=== PATIENT | female | born 1945 | race Hispanic/Latino ===

== ENCOUNTER 2017-10-08 09:46 | Day surgery (SDC) | payer MEDICARE, BC ==
[2017-10-08] MEDS ORDERED: Lactated Ringer's 1,000 ML IV ONE (09:57)
[2017-10-08] MEDS ORDERED: Propofol 10 mg/ml Inj (20 ML) ONE (11:42)
[2017-10-08] MEDS ORDERED: Lidocaine 2% MPF (5 ml) Inj ONE (11:42)
[2017-10-08 12:11] VITALS: PULSE 75; TEMP 98
[2017-10-08 12:20] VITALS: BP 130/70; RESP 16; O2SAT 99
== END 2017-10-08 12:30 | disposition home or self-care (01) ==
LOC: H.ENDO 09:46
PROVIDERS: ATTEND Internal Medicine Gastroenterology
DX: Z12.11 Encounter for screening for malignant neoplasm of colon (principal); K64.0 First degree hemorrhoids; E11.9 Type 2 diabetes mellitus without complications; E78.5 Hyperlipidemia, unspecified; I10 Essential (primary) hypertension
CPT/HCPCS: 82948; G0121; J2704; J7120

== ENCOUNTER 2018-08-25 16:57 | Inpatient (IN) | payer MEDICARE, BC ==
[2018-08-25] MEDS ORDERED: Sodium Chloride 0.9% 1,000 ML IV STA (17:46)
--- NOTE | 2018-08-25 17:49 | ED PDOC ---
HPI: Abdomen Time Seen by Provider: 08/25/18 17:35 Chief Complaint (Nursing): Abdominal Pain History Per: Patient Onset/Duration Of Symptoms: Days (10) Current Symptoms Are (Timing): Intermittent Episodes Severity: Moderate Location Of Pain/Discomfort: Epigastric Quality Of Discomfort: Unable To Describe Associated Symptoms: Nausea, Vomiting, Diarrhea. denies: Fever, Urinary Symptoms Exacerbating Factors: None Alleviating Factors: None Additional Complaint(s): Intermittent episodes of epigastric pain assoc with nausea and vomiting and diarrhea x 10 days. Denies fever or hematochezia. Denies urinary sxs. Past Medical History Vital Signs: Last Vital Signs Temp 97.7 F 08/25/18 17:15 Pulse 135 H 08/25/18 17:15 Resp 16 08/25/18 17:15 BP 187/118 H 08/25/18 17:15 Pulse Ox 96 08/25/18 17:15 - Medical History PMH: Diabetes, HTN - Surgical History Surgical History: Appendectomy, Endoscopy - Family History Family History: States: Unknown Family Hx - Immunization History Hx Influenza Vaccination: Yes - Home Medications Home Medications: Ambulatory Orders Medication Instructions Recorded Aspirin [Ecotrin] 81 mg PO HS 08/25/18 Cholecalciferol [Vitamin D 1000 IU] 1,000 unit PO DAILY 08/25/18 Ezetimibe/Simvastatin [Vytorin 1 tab PO HS 08/25/18 10-40 mg Tablet] Glipizide [Glipizide ER] 2.5 mg PO DAILY 08/25/18 Metoprolol Succinate [Toprol Xl] 50 mg PO DAILY 08/25/18 Omeprazole 40 mg PO DAILY 08/25/18 Pregabalin [Lyrica] 75 mg PO Q12 08/25/18 hydroCHLOROthiazide [Microzide] 12.5 mg PO DAILY 08/25/18 metFORMIN [glucOPHAGE] 500 mg PO BID 08/25/18 predniSONE [predniSONE Tab] 7 mg PO HS 08/25/18 - Allergies Allergies/Adverse Reactions: Allergies Allergy/AdvReac Type Severity Reaction Status Date / Time Penicillins Allergy SHORTNESS Verified 08/25/18 17:13 OF BREATH Sulfa (Sulfonamide Allergy SHORTNESS Verified 08/25/18 17:13 Antibiotics) OF BREATH Review of Systems ROS Statement: Except As Marked, All Systems Reviewed And Found Negative Constitutional: Negative for: Fever Gastrointestinal: Positive for: Nausea, Vomiting, Abdominal Pain, Diarrhea Physical Exam - Reviewed Nursing Documentation Reviewed: Yes Vital Signs Reviewed: Yes - Physical Exam Appears: Positive for: Non-toxic, No Acute Distress Head Exam: Positive for: ATRAUMATIC, NORMAL INSPECTION, NORMOCEPHALIC Skin: Positive for: Normal Color, Warm, DRY Eye Exam: Positive for: EOMI, Normal appearance, PERRL ENT: Positive for: Other (Mucous membranes dry) Neck: Positive for: Normal, Painless ROM Cardiovascular/Chest: Positive for: Regular Rate, Rhythm Respiratory: Positive for: CNT, Normal Breath Sounds Gastrointestinal/Abdominal: Positive for: Soft, Tenderness (Epigastric) Back: Positive for: Normal Inspection Extremity: Positive for: Normal ROM Neurologic/Psych: Positive for: Alert, Oriented - Laboratory Results Result Diagrams: 08/25/18 18:02 08/25/18 18:02 - ECG O2 Sat by Pulse Oximetry: 96 Medical Decision Making Medical Decision Making: EKG with A fib RVR ? new onset with BP elevated. Will give Cardizem IV Disposition - Clinical Impression Clinical Impression: Abdominal pain, Atrial fibrillation with RVR - Patient ED Disposition Is Patient to be Admitted: Transfer of Care - Disposition Disposition: Transfer of Care Disposition Time: 19:00 Condition: FAIR Forms: mChron (Nepali) Patient Signed Over To: Isma Quintanilla
[2018-08-25 18:13] LABS: BASO % 0.2 % (0.0-2.0); EOS # 0.1 K/uL (0.0-0.7); EOS % 0.7 % (0.0-4.0); HEMOGLOBIN 10.6 g/dL (12.0-16.0); LYMPH # 2.6 K/uL (1.0-4.3); LYMPH % 26.3 % (20.0-40.0); MEAN CELL VOLUME 72.3 fl (81.0-99.0); MEAN CORPUSCULAR HEMOGLOBIN 22.6 pg (27.0-31.0); MEAN CORPUSCULAR HGB CONC 31.3 g/dL (33.0-37.0); MONO # 0.8 K/uL (0.0-0.8); NEUT # 6.5 K/uL (1.8-7.0); NEUT % 64.8 % (50.0-75.0); NRBC % 0.1 % (0.0-0.0); RBC 4.68 Mil/uL (3.80-5.20); RED CELL DISTRIBUTION WIDTH 19.5 % (11.5-14.5); WHITE BLOOD COUNT 10.1 K/uL (4.8-10.8)
[2018-08-25 18:18] LABS: ALB/GLOB RATIO 1.2 (1.0-2.1); ALBUMIN 4.1 g/dL (3.5-5.0)
[2018-08-25] MEDS ORDERED: Iodixanol 320 MG/ML 100 ML BOTTLE IV ONE (18:58)
[2018-08-25] MEDS ORDERED: Sodium Chloride 0.9% 50 ML IV ONE (18:58)
[2018-08-25 19:30] LABS: INR 1.2
--- NOTE | 2018-08-25 20:37 | ED PDOC ---
- Laboratory Results Result Diagrams: 08/25/18 18:02 08/25/18 18:02 - ECG O2 Sat by Pulse Oximetry: 95 (RA) Medical Decision Making Medical Decision Making: Time: 19:00 Patient was signed out to me by Dr. Puri pending CT Abdomen and final disposition. CT Abdomen: FINDINGS: LUNG BASES: The lung bases appear clear. No pleural effusions are seen. There is mild scarring and pleural thickening at the lung bases. LIVER: Unremarkable. GALLBLADDER AND BILE DUCTS: The gallbladder has been surgically removed. Minimal pneumobilia. PANCREAS: Unremarkable. SPLEEN: Unremarkable. ADRENAL GLANDS: Unremarkable. KIDNEYS, URETERS, AND BLADDER: The kidneys appear within normal limits. There is no hydronephrosis or hydroureter. No urinary calculi are seen. STOMACH AND BOWEL: Unremarkable appearance of the stomach and bowel. No evidence of bowel obstruction. No evidence suggesting enteritis or colitis. APPENDIX: No evidence of acute appendicitis on CT examination. PERITONEUM: No free fluid. No free air. There is marked thinning of the anterior abdominal musculature. It LYMPH NODES: No lymphadenopathy is evident. VASCULATURE: No evidence of abdominal aortic aneurysm. BONES: There is advanced hypertrophic and degenerative changes lumbar spine.. IMPRESSION: Mild scarring and pleural thickening at the lung bases. Status post cholecystectomy. Minimal pneumobilia. Marked thinning of the anterior abdominal musculature. No suspicious mass or free fluid collection or lymphadenopathy within the abdomen and pelvis. Scribe Attestation: Documented by Socorro Stewart, acting as a scribe for Isma Quintanilla MD. Provider Scribe Attestation: All medical record entries made by the Scribe were at my direction and per sonally dictated by me. I have reviewed the chart and agree that the record accurately reflects my personal performance of the history, physical exam, medical decision making, and the department course for this patient. I have also personally directed, reviewed, and agree with the discharge instructions and disposition. Disposition Discussed With : Leonides Momin Counseled Patient/Family Regarding: Studies Performed, Diagnosis - Clinical Impression Clinical Impression: Abdominal pain, Atrial fibrillation with RVR - POA Present On Arrival: None - Disposition Disposition: Hospitalized as Observation Patient Disposition Time: 21:00 Condition: FAIR
[2018-08-25] MEDS ORDERED: Enoxaparin 120 mg Syringe SC STA (20:55)
[2018-08-25 21:18] LABS: TROPONIN I 0.025 ng/mL (0.00-0.120)
[2018-08-25] MEDS: Metoprolol Succinate 50 mg XL Tab PO SCH (23:39)
[2018-08-25] MEDS ORDERED: Enoxaparin 80 mg Syringe SC SCH (23:45)
[2018-08-26] MEDS: Metoprolol Succinate 50 mg XL Tab PO SCH ×3 (00:15→08:31)
[2018-08-26 01:00] LABS: TROPONIN I 0.021 ng/mL (0.00-0.120)
[2018-08-26 01:04] LABS: T4 9.93 ug/dl (5.5-11.0)
[2018-08-26 01:18] LABS: T3 1.01 nmol/L (1.49-2.60)
--- NOTE | 2018-08-26 07:57 | CARD ---
APPROVED REPORT Date of service: 08/25/2018 EKG Measurement Heart [id number] <Conclusion> Atrial fibrillation with rapid ventricular response with premature ventricular or aberrantly conducted complexes Incomplete right bundle branch block Abnormal ECG
--- NOTE | 2018-08-26 08:03 | CARD ---
APPROVED REPORT Date of service: 08/26/2018 EKG Measurement Heart [id number] <Conclusion> Atrial fibrillation Incomplete right bundle branch block Cannot rule out Anterior infarct, age undetermined Abnormal ECG
[2018-08-26] MEDS: Insulin Regular 100 units/ml SC SCH ×4 (08:05→22:00)
[2018-08-26] MEDS: Pantoprazole 40 mg EC Tab PO SCH (08:32)
[2018-08-26] MEDS: Cholecalciferol 1,000 INTLU TAB PO SCH (08:33)
[2018-08-26] MEDS: predniSONE 5 mg/5 mL Oral Soln UD PO SCH (08:33)
[2018-08-26] MEDS ORDERED: Enoxaparin 120 mg Syringe SC SCH (09:00)
[2018-08-26] MEDS ORDERED: GlipiZIDE 2.5 mg SR Tab PO SCH (09:00)
--- NOTE | 2018-08-26 09:16 | CT ---
Date of service: 08/25/2018 PROCEDURE: CT Abdomen and Pelvis with contrast HISTORY: Abd pain COMPARISON: None. TECHNIQUE: Contrast dose: 95 mL Visipaque 320 Radiation dose: Total exam DLP = 842.74 mGy-cm. This CT exam was performed using one or more of the following dose reduction techniques: Automated exposure control, adjustment of the mA and/or kV according to patient size, and/or use of iterative reconstruction technique. FINDINGS: LOWER THORAX: Minimal linear scar/atelectasis in left lower lobe and to a lesser extent in the lingula. Trace right pleural effusion LIVER: Normal size, contour and attenuation. There is minimal intrahepatic biliary gas in the left lobe of the liver. This is likely related to prior cholecystectomy. No mass. No biliary ductal dilatation. GALLBLADDER AND BILE DUCTS: Status post cholecystectomy PANCREAS: Unremarkable. No gross lesion or ductal dilatation. SPLEEN: Unremarkable. ADRENALS: Unremarkable. No mass. KIDNEYS AND URETERS: There is a nonspecific rounded mass in the lower pole of the right kidney measuring 18 mm in diameter. This should be further evaluated with ultrasound examination. There is no other renal mass identified. There is no calculus or hydronephrosis. VASCULATURE: Unremarkable. No aortic aneurysm. There is atherosclerotic calcification of the abdominal aorta. BOWEL: Unremarkable. No obstruction. No gross mural thickening. APPENDIX: Normal appendix. PERITONEUM: Unremarkable. No free fluid. No free air. LYMPH NODES: Unremarkable. No enlarged lymph nodes. BLADDER: Suboptimally distended. Mild mural thickening and questionable perivesical stranding raise suspicion of acute cystitis. Please correlate with urinalysis. REPRODUCTIVE: Normal postmenopausal uterus BONES: Incidental hemangiomas of the T11 and L1 vertebral bodies. No evidence of acute fracture. OTHER FINDINGS: None. IMPRESSION: Mild bladder wall thickening. Possibly artifactual. Questionable perivesical fat stranding. Please correlate with urinalysis in consideration of possible acute cystitis. Nonspecific 18 mm mass in the lower pole of the right kidney. Recommend further evaluation with ultrasound examination. Status post cholecystectomy. Mild pneumobilia in the left hepatic lobe. Likely related to prior cholecystectomy. Trace right pleural effusion. No other significant abnormality is identified. The preliminary findings for this examination were reported by [facility] at 8:32 p.m. on 08/25/2018. There is discordance of this report with the preliminary findings. Findings regarding the urinary bladder and possible cystitis were not described in the preliminary report of this examination.
--- NOTE | 2018-08-26 09:20 | RAD ---
Date of service: 08/25/2018 PROCEDURE: CHEST RADIOGRAPH, 1 VIEW HISTORY: copd COMPARISON: None available. FINDINGS: LUNGS: Clear. PLEURA: No pneumothorax or pleural fluid seen. CARDIOVASCULAR: No aortic atherosclerotic calcification present. Normal. OSSEOUS STRUCTURES: No significant abnormalities. VISUALIZED UPPER ABDOMEN: Normal. OTHER FINDINGS: None. IMPRESSION: No active disease.
[2018-08-26] MEDS: Enoxaparin 120 mg Syringe SC SCH ×2 (10:08→21:19)
[2018-08-26 10:40] LABS: HEMOGLOBIN 10.5 g/dL (12.0-16.0); MEAN CELL VOLUME 73.5 fl (81.0-99.0); MEAN CORPUSCULAR HEMOGLOBIN 22.8 pg (27.0-31.0); RBC 4.59 Mil/uL (3.80-5.20); RED CELL DISTRIBUTION WIDTH 19.7 % (11.5-14.5); WHITE BLOOD COUNT 9.1 K/uL (4.8-10.8)
[2018-08-26 10:59] LABS: BLOOD UREA NITROGEN 17 mg/dl (7-17); CALCIUM 8.9 mg/dL (8.4-10.2); GFR NON-AFRICAN AMERICAN 55
[2018-08-26] MEDS ORDERED: Sodium Chloride 0.9% 1,000 ML IV SCH (11:00)
[2018-08-26] MEDS ORDERED: Potassium Chloride 20 mEq/15 ml LIQ UD PO ONE (12:02)
[2018-08-26 12:07] LABS: SQUAMOUS EPITHIAL 1 /hpf (0-5); URINE BILIRUBIN NEGATIVE (NEGATIVE); URINE BLOOD NEGATIVE (NEGATIVE); URINE CLARITY CLEAR (Clear); URINE COLOR YELLOW (YELLOW); URINE GLUCOSE (UA) NEG (NEGATIVE); URINE HYALINE CAST 0-2 /hpf (0-2); URINE LEUKOCYTE ESTERASE NEG Leu/uL (Negative); URINE PROTEIN NEGATIVE (NEGATIVE); URINE UROBILINOGEN 0.2-1.0 mg/dL (0.2-1.0)
--- NOTE | 2018-08-26 12:56 | CP.PCM.CON ---
History of Present Illness - History of Present Illness History of Present Illness: Consultation for evaluation of new onset afib HPI: 73 year old female with hx of HTN , DM 2' to steroids, PMR admitted with c/o 10 days of epigastric discomfort and diarrhea after eating a steak. At baseline denies any chest pains or SOB. In the ED pt noted to be in atrial fibrillation w/RVR , echocardiogram showed normal EF , dilated LV with biatrial enlargement Review of Systems - Review of Systems Systems not reviewed;Unavailable: Acuity of Condition - Constitutional Constitutional: As Per HPI - EENT Eyes: As Per HPI Ears: As Per HPI Nose/Mouth/Throat: As Per HPI - Breasts Breasts: As Per HPI - Cardiovascular Cardiovascular: As Per HPI - Respiratory Respiratory: As Per HPI - Gastrointestinal Gastrointestinal: As Per HPI - Genitourinary Genitourinary: As Per HPI - Reproductive: Female Reproductive:Female: As Per HPI - Menstruation Menstruation: As Per HPI - Musculoskeletal Musculoskeletal: As Per HPI - Integumentary Integumentary: As Per HPI - Neurological Neurological: As Per HPI - Psychiatric Psychiatric: As Per HPI - Endocrine Endocrine: As Per HPI - Hematologic/Lymphatic Hematologic: As Per HPI Past Patient History - Past Medical History & Family History Past Medical History?: Yes - Past Social History Smoking Status: Never Smoked - CARDIAC Hx Cardiac Disorders: Yes Hx Hypertension: Yes - PULMONARY Hx Respiratory Disorders: No - NEUROLOGICAL Hx Neurological Disorder: No - HEENT Hx HEENT Problems: No - RENAL Hx Chronic Kidney Disease: No - ENDOCRINE/METABOLIC Hx Endocrine Disorders: Yes Hx Diabetes Mellitus Type 2: Yes - HEMATOLOGICAL/ONCOLOGICAL Hx Blood Disorders: No Hx AIDS: No Hx Human Immunodeficiency Virus (HIV): No - INTEGUMENTARY Hx Dermatological Problems: No - MUSCULOSKELETAL/RHEUMATOLOGICAL Hx Musculoskeletal Disorders: No Hx Falls: No - GASTROINTESTINAL Hx Gastrointestinal Disorders: No - GENITOURINARY/GYNECOLOGICAL Hx Genitourinary Disorders: No - PSYCHIATRIC Hx Psychophysiologic Disorder: No Hx Substance Use: No - SURGICAL HISTORY Hx Surgeries: Yes Hx Appendectomy: Yes Other/Comment: Carpal tunnel surg, endoscopy - ANESTHESIA Hx Anesthesia: Yes Hx Anesthesia Reactions: No Hx Malignant Hyperthermia: No Meds Allergies/Adverse Reactions: Allergies Allergy/AdvReac Type Severity Reaction Status Date / Time Penicillins Allergy SHORTNESS Verified 08/25/18 17:13 OF BREATH Sulfa (Sulfonamide Allergy SHORTNESS Verified 08/25/18 17:13 Antibiotics) OF BREATH - Medications Medications: Current Medications Aspirin (Ecotrin) 81 mg PO HS [facility] Last Admin: 08/26/18 00:04 Dose: 81 mg Cholecalciferol (Vitamin D) 1,000 intlu PO DAILY [facility] Last Admin: 08/26/18 08:33 Dose: 1,000 intlu Diltiazem HCl (Cardizem) 30 mg PO TID [facility] Enoxaparin Sodium (Lovenox) 110 mg SC Q12 [facility]; Protocol Last Admin: 08/26/18 10:08 Dose: 110 mg Glipizide (Glucotrol Xl) 2.5 mg PO DAILY [facility] Last Admin: 08/26/18 08:29 Dose: 2.5 mg Hydrochlorothiazide (Microzide) 12.5 mg PO DAILY [facility] Last Admin: 08/26/18 08:06 Dose: Not Given Potassium Chloride/Sodium Chloride (Potassium Chl 20 Meq In Ns) 1,000 mls @ 85 mls/hr IV .[id number] [facility] Stop: 08/27/18 10:53 Insulin Human Regular (Humulin R) 0 units SC ACHS [facility]; Protocol Last Admin: 08/26/18 12:52 Dose: Not Given Metformin HCl (Glucophage) 500 mg PO BID [facility] Last Admin: 08/26/18 08:29 Dose: 500 mg Metoprolol Succinate (Toprol Xl) 50 mg PO DAILY [facility] Last Admin: 08/26/18 08:31 Dose: 50 mg Pantoprazole Sodium (Protonix Ec Tab) 40 mg PO DAILY [facility] Last Admin: 08/26/18 08:32 Dose: 40 mg Prednisone (Prednisone Oral Soln) 7 mg PO DAILY [facility] Last Admin: 08/26/18 08:33 Dose: 7 mg Pregabalin (Lyrica) 75 mg PO BID [facility] Last Admin: 08/26/18 10:21 Dose: 75 mg Physical Exam - Constitutional Appears: Well - Head Exam Head Exam: ATRAUMATIC, NORMAL INSPECTION, NORMOCEPHALIC - Eye Exam Eye Exam: EOMI, Normal appearance, PERRL Pupil Exam: NORMAL ACCOMODATION, PERRL - ENT Exam ENT Exam: Mucous Membranes Moist, Normal Exam - Neck Exam Neck exam: Positive for: Normal Inspection - Respiratory Exam Respiratory Exam: Clear to Auscultation Bilateral, NORMAL BREATHING PATTERN - Cardiovascular Exam Cardiovascular Exam: Irregular Rhythm, +S1, +S2, Systolic Murmur - GI/Abdominal Exam GI & Abdominal Exam: Normal Bowel Sounds, Soft. absent: Tenderness - Extremities Exam Extremities exam: Positive for: normal inspection - Back Exam Back exam: NORMAL INSPECTION - Neurological Exam Neurological exam: Alert, CN II-XII Intact, Normal Gait, Oriented x3, Reflexes Normal - Psychiatric Exam Psychiatric exam: Normal Affect, Normal Mood - Skin Skin Exam: Dry, Intact, Normal Color, Warm Results - Vital Signs Recent Vital Signs: Last Vital Signs Temp 98 F 08/26/18 12:17 Pulse 80 08/26/18 12:17 Resp 18 08/26/18 12:17 BP 177/98 H 08/26/18 12:17 Pulse Ox 96 08/26/18 12:17 - Labs Result Diagrams: 08/26/18 10:27 08/26/18 10:27 Labs: Laboratory Results - last 24 hr 08/25/18 08/25/18 08/25/18 18:00 18:02 18:02 WBC 10.1 RBC 4.68 Hgb 10.6 L Hct 33.8 L MCV 72.3 L MCH 22.6 L MCHC 31.3 L RDW 19.5 H Plt Count 327 MPV 9.0 Neut % (Auto) 64.8 Lymph % (Auto) 26.3 Edmunds % (Auto) 8.0 Eos % (Auto) 0.7 Baso % (Auto) 0.2 Neut # (Auto) 6.5 Lymph # (Auto) 2.6 Edmunds # (Auto) 0.8 Eos # (Auto) 0.1 Baso # (Auto) 0.0 PT INR Sodium 141 Potassium 3.6 Chloride 104 Carbon Dioxide 24 Anion Gap 17 BUN 22 H Creatinine 1.2 Est GFR ( Amer) 54 Est GFR (Non-Af Amer) 44 POC Glucose (mg/dL) Random Glucose 90 Calcium 9.0 Total Bilirubin 1.0 AST 20 ALT 25 Alkaline Phosphatase 92 Troponin I 0.0250 Total Protein 7.5 Albumin 4.1 Globulin 3.5 Albumin/Globulin Ratio 1.2 Lipase 102 Thyroxine (T4) Total T3 TSH 3rd Generation 6.77 H Urine Color Urine Clarity Urine pH Ur Specific [place] Urine Protein Urine Glucose (UA) Urine Ketones Urine Blood Urine Nitrate Urine Bilirubin Urine Urobilinogen Ur Leukocyte Esterase Urine RBC (Auto) Urine Microscopic WBC Ur Squamous Epith Cells Hyaline Casts 08/25/18 08/26/18 08/26/18 19:07 00:24 05:20 WBC RBC Hgb Hct MCV MCH MCHC RDW Plt Count MPV Neut % (Auto) Lymph % (Auto) Edmunds % (Auto) Eos % (Auto) Baso % (Auto) Neut # (Auto) Lymph # (Auto) [place] # (Auto) Eos # (Auto) Baso # (Auto) PT 14.0 H INR 1.2 Sodium Potassium Chloride Carbon Dioxide Anion Gap BUN Creatinine Est GFR ( Amer) Est GFR (Non-Af Amer) POC Glucose (mg/dL) 72 Random Glucose Calcium Total Bilirubin AST ALT Alkaline Phosphatase Troponin I 0.0210 Total Protein Albumin Globulin Albumin/Globulin Ratio Lipase Thyroxine (T4) 9.93 Total T3 1.01 L TSH 3rd Generation Urine Color Urine Clarity Urine pH Ur Specific [place] Urine Protein Urine Glucose (UA) Urine Ketones Urine Blood Urine Nitrate Urine Bilirubin Urine Urobilinogen Ur Leukocyte Esterase Urine RBC (Auto) Urine Microscopic WBC Ur Squamous Epith Cells Hyaline Casts 08/26/18 08/26/18 08/26/18 10:27 10:27 11:18 WBC 9.1 RBC 4.59 Hgb 10.5 L Hct 33.7 L MCV 73.5 L MCH 22.8 L MCHC 31.0 L RDW 19.7 H Plt Count 308 MPV Neut % (Auto) Lymph % (Auto) Edmunds % (Auto) Eos % (Auto) Baso % (Auto) Neut # (Auto) Lymph # (Auto) [place] # (Auto) Eos # (Auto) Baso # (Auto) PT INR Sodium 141 Potassium 3.3 L Chloride 102 Carbon Dioxide 26 Anion Gap 16 BUN 17 Creatinine 1.0 Est GFR ( Amer) > 60 Est GFR (Non-Af Amer) 55 POC Glucose (mg/dL) 93 Random Glucose 100 Calcium 8.9 Total Bilirubin AST ALT Alkaline Phosphatase Troponin I Total Protein Albumin Globulin Albumin/Globulin Ratio Lipase Thyroxine (T4) Total T3 TSH 3rd Generation Urine Color Urine Clarity Urine pH Ur Specific [place] Urine Protein Urine Glucose (UA) Urine Ketones Urine Blood Urine Nitrate Urine Bilirubin Urine Urobilinogen Ur Leukocyte Esterase Urine RBC (Auto) Urine Microscopic WBC Ur Squamous Epith Cells Hyaline Casts 08/26/18 11:50 WBC RBC Hgb Hct MCV MCH MCHC RDW Plt Count MPV Neut % (Auto) Lymph % (Auto) Edmunds % (Auto) Eos % (Auto) Baso % (Auto) Neut # (Auto) Lymph # (Auto) [place]ds # (Auto) Eos # (Auto) Baso # (Auto) PT INR Sodium Potassium Chloride Carbon Dioxide Anion Gap BUN Creatinine Est GFR ( Amer) Est GFR (Non-Af Amer) POC Glucose (mg/dL) Random Glucose Calcium Total Bilirubin AST ALT Alkaline Phosphatase Troponin I Total Protein Albumin Globulin Albumin/Globulin Ratio Lipase Thyroxine (T4) Total T3 TSH 3rd Generation Urine Color Yellow Urine Clarity Clear Urine pH 6.0 Ur Specific [place] 1.023 Urine Protein Negative Urine Glucose (UA) Neg Urine Ketones Trace Urine Blood Negative Urine Nitrate Negative Urine Bilirubin Negative Urine Urobilinogen 0.2-1.0 Ur Leukocyte Esterase Neg Urine RBC (Auto) 2 Urine Microscopic WBC 1 Ur Squamous Epith Cells 1 Hyaline Casts 0-2 Assessment & Plan (1) Atrial fibrillation with RVR Status: Acute (2) Abdominal pain Status: Acute (3) Cardiomyopathy Status: Acute (4) Mitral valve disease Status: Acute (5) Morbid obesity Status: Acute
[2018-08-26] MEDS: Potassium Chl 20 mEq in NS 1,000 ML IV SCH (13:10)
--- NOTE | 2018-08-26 13:52 | CP.PCM.HP ---
History of Present Illness - History of Present Illness History of Present Illness: 73 y/o lady presented with diarrhea, dysphagia, general weakness, palpitations, abdominal pain x 10 days wgt loss 14 lbs in 10 days. In ER the patient presented with new onset of a.fibrillation. An echo reveled a dilated cardiomiopathy with mitral valve regurgitation. All these condition are new and appeared acute in origin. Blood culture pending. The association of diarrhea with the new findings in the cardiac condition could be a sign of and in infectious process. The cause of this can be related to a low virulent species of bacteria. Will start antibx iv until the etiopathology of this condition is not clear. The patient will need further studies for her cardiac condition (cardiac catheterization, JS-if not stricture- and possible pacemaker). Will follow ID, Cardiology and GI consults. Present on Admission - Present on Admission Any Indicators Present on Admission: No Review of Systems - Constitutional Constitutional: Anorexia, Malaise, Weight Loss, Weakness - EENT Eyes: As Per HPI Nose/Mouth/Throat: As Per HPI - Cardiovascular Cardiovascular: Dyspnea on Exertion, Palpitations - Respiratory Respiratory: Dyspnea on Exertion - Gastrointestinal Gastrointestinal: Abdominal Pain, Diarrhea, Dyspepsia, Dysphagia, Nausea - Musculoskeletal Musculoskeletal: Muscle Weakness - Integumentary Integumentary: As Per HPI - Neurological Neurological: As Per HPI - Psychiatric Psychiatric: As Per HPI - Endocrine Endocrine: As Per HPI Past Patient History - Past Medical History & Family History Past Medical History?: Yes - Past Social History Smoking Status: Never Smoked - CARDIAC Hx Cardiac Disorders: Yes Hx Hypertension: Yes - PULMONARY Hx Respiratory Disorders: No - NEUROLOGICAL Hx Neurological Disorder: No - HEENT Hx HEENT Problems: No - RENAL Hx Chronic Kidney Disease: No - ENDOCRINE/METABOLIC Hx Endocrine Disorders: Yes Hx Diabetes Mellitus Type 2: Yes - HEMATOLOGICAL/ONCOLOGICAL Hx Blood Disorders: No Hx AIDS: No Hx Human Immunodeficiency Virus (HIV): No - INTEGUMENTARY Hx Dermatological Problems: No - MUSCULOSKELETAL/RHEUMATOLOGICAL Hx Musculoskeletal Disorders: No Hx Falls: No - GASTROINTESTINAL Hx Gastrointestinal Disorders: No - GENITOURINARY/GYNECOLOGICAL Hx Genitourinary Disorders: No - PSYCHIATRIC Hx Psychophysiologic Disorder: No Hx Substance Use: No - SURGICAL HISTORY Hx Surgeries: Yes Hx Appendectomy: Yes Other/Comment: Carpal tunnel surg, endoscopy - ANESTHESIA Hx Anesthesia: Yes Hx Anesthesia Reactions: No Hx Malignant Hyperthermia: No Meds Allergies/Adverse Reactions: Allergies Allergy/AdvReac Type Severity Reaction Status Date / Time Penicillins Allergy SHORTNESS Verified 08/25/18 17:13 OF BREATH Sulfa (Sulfonamide Allergy SHORTNESS Verified 08/25/18 17:13 Antibiotics) OF BREATH Physical Exam - Constitutional Appears: Chronically Ill Additional comments: morbid obese - Head Exam Head Exam: ATRAUMATIC, NORMAL INSPECTION, NORMOCEPHALIC - Eye Exam Eye Exam: Normal appearance - ENT Exam ENT Exam: Mucous Membranes Dry - Neck Exam Neck exam: Positive for: Full Rom - Respiratory Exam Respiratory Exam: Decreased Breath Sounds - Cardiovascular Exam Cardiovascular Exam: Tachycardia, Irregular Rhythm, REGULAR RHYTHM, Systolic Murmur - GI/Abdominal Exam GI & Abdominal Exam: Normal Bowel Sounds - Rectal Exam Rectal Exam: Deferred - Neurological Exam Neurological exam: Alert, CN II-XII Intact, Oriented x3 - Psychiatric Exam Psychiatric exam: Normal Affect - Skin Skin Exam: Normal Color Results - Vital Signs Recent Vital Signs: Last Vital Signs Temp 98 F 08/26/18 12:17 Pulse 80 08/26/18 12:17 Resp 18 08/26/18 12:17 BP 177/98 H 08/26/18 12:17 Pulse Ox 96 08/26/18 12:17 - Labs Result Diagrams: 08/26/18 10:27 08/26/18 10:27 Labs: Laboratory Results - last 24 hr 08/25/18 08/25/18 08/25/18 18:00 18:02 18:02 WBC 10.1 RBC 4.68 Hgb 10.6 L Hct 33.8 L MCV 72.3 L MCH 22.6 L MCHC 31.3 L RDW 19.5 H Plt Count 327 MPV 9.0 Neut % (Auto) 64.8 Lymph % (Auto) 26.3 [place] % (Auto) 8.0 Eos % (Auto) 0.7 Baso % (Auto) 0.2 Neut # (Auto) 6.5 Lymph # (Auto) 2.6 [place] # (Auto) 0.8 Eos # (Auto) 0.1 Baso # (Auto) 0.0 PT INR Sodium 141 Potassium 3.6 Chloride 104 Carbon Dioxide 24 Anion Gap 17 BUN 22 H Creatinine 1.2 Est GFR ( Amer) 54 Est GFR (Non-Af Amer) 44 POC Glucose (mg/dL) Random Glucose 90 Calcium 9.0 Total Bilirubin 1.0 AST 20 ALT 25 Alkaline Phosphatase 92 Troponin I 0.0250 Total Protein 7.5 Albumin 4.1 Globulin 3.5 Albumin/Globulin Ratio 1.2 Lipase 102 Thyroxine (T4) Total T3 TSH 3rd Generation 6.77 H Urine Color Urine Clarity Urine pH Ur Specific [place] Urine Protein Urine Glucose (UA) Urine Ketones Urine Blood Urine Nitrate Urine Bilirubin Urine Urobilinogen Ur Leukocyte Esterase Urine RBC (Auto) Urine Microscopic WBC Ur Squamous Epith Cells Hyaline Casts C. difficile Ag & Toxin 08/25/18 08/26/18 08/26/18 19:07 00:24 05:20 WBC RBC Hgb Hct MCV MCH MCHC RDW Plt Count MPV Neut % (Auto) Lymph % (Auto) [place] % (Auto) Eos % (Auto) Baso % (Auto) Neut # (Auto) Lymph # (Auto) [place] # (Auto) Eos # (Auto) Baso # (Auto) PT 14.0 H INR 1.2 Sodium Potassium Chloride Carbon Dioxide Anion Gap BUN Creatinine Est GFR ( Amer) Est GFR (Non-Af Amer) POC Glucose (mg/dL) 72 Random Glucose Calcium Total Bilirubin AST ALT Alkaline Phosphatase Troponin I 0.0210 Total Protein Albumin Globulin Albumin/Globulin Ratio Lipase Thyroxine (T4) 9.93 Total T3 1.01 L TSH 3rd Generation Urine Color Urine Clarity Urine pH Ur Specific [place] Urine Protein Urine Glucose (UA) Urine Ketones Urine Blood Urine Nitrate Urine Bilirubin Urine Urobilinogen Ur Leukocyte Esterase Urine RBC (Auto) Urine Microscopic WBC Ur Squamous Epith Cells Hyaline Casts C. difficile Ag & Toxin 08/26/18 08/26/18 08/26/18 10:27 10:27 11:18 WBC 9.1 RBC 4.59 Hgb 10.5 L Hct 33.7 L MCV 73.5 L MCH 22.8 L MCHC 31.0 L RDW 19.7 H Plt Count 308 MPV Neut % (Auto) Lymph % (Auto) [place] % (Auto) Eos % (Auto) Baso % (Auto) Neut # (Auto) Lymph # (Auto) [place] # (Auto) Eos # (Auto) Baso # (Auto) PT INR Sodium 141 Potassium 3.3 L Chloride 102 Carbon Dioxide 26 Anion Gap 16 BUN 17 Creatinine 1.0 Est GFR ( Amer) > 60 Est GFR (Non-Af Amer) 55 POC Glucose (mg/dL) 93 Random Glucose 100 Calcium 8.9 Total Bilirubin AST ALT Alkaline Phosphatase Troponin I Total Protein Albumin Globulin Albumin/Globulin Ratio Lipase Thyroxine (T4) Total T3 TSH 3rd Generation Urine Color Urine Clarity Urine pH Ur Specific [place] Urine Protein Urine Glucose (UA) Urine Ketones Urine Blood Urine Nitrate Urine Bilirubin Urine Urobilinogen Ur Leukocyte Esterase Urine RBC (Auto) Urine Microscopic WBC Ur Squamous Epith Cells Hyaline Casts C. difficile Ag & Toxin 08/26/18 08/26/18 11:50 11:50 WBC RBC Hgb Hct MCV MCH MCHC RDW Plt Count MPV Neut % (Auto) Lymph % (Auto) [place] % (Auto) Eos % (Auto) Baso % (Auto) Neut # (Auto) Lymph # (Auto) [place] # (Auto) Eos # (Auto) Baso # (Auto) PT INR Sodium Potassium Chloride Carbon Dioxide Anion Gap BUN Creatinine Est GFR ( Amer) Est GFR (Non-Af Amer) POC Glucose (mg/dL) Random Glucose Calcium Total Bilirubin AST ALT Alkaline Phosphatase Troponin I Total Protein Albumin Globulin Albumin/Globulin Ratio Lipase Thyroxine (T4) Total T3 TSH 3rd Generation Urine Color Yellow Urine Clarity Clear Urine pH 6.0 Ur Specific [place] 1.023 Urine Protein Negative Urine Glucose (UA) Neg Urine Ketones Trace Urine Blood Negative Urine Nitrate Negative Urine Bilirubin Negative Urine Urobilinogen 0.2-1.0 Ur Leukocyte Esterase Neg Urine RBC (Auto) 2 Urine Microscopic WBC 1 Ur Squamous Epith Cells 1 Hyaline Casts 0-2 C. difficile Ag & Toxin Negative Assessment & Plan (1) Dysphagia Status: Acute (2) Diabetes 1.5, managed as type 2 Status: Acute (3) Cardiomyopathy Status: Acute (4) Endocarditis Status: Suspected (5) Mitral valve disease Status: Acute (6) Abdominal pain Status: Acute (7) Atrial fibrillation with RVR Status: Acute (8) Morbid obesity Status: Acute (9) Esophageal stricture Status: Suspected - Assessment and Plan (Free Text) Plan: As per orders.
--- NOTE | 2018-08-26 17:19 | US ---
Date of service: 08/26/2018 PROCEDURE: Ultrasound of the Kidneys HISTORY: right kidney mass COMPARISON: None available. TECHNIQUE: Sonogram of the kidneys. FINDINGS: RIGHT KIDNEY: Measures: 4.5 x 4.7 x 9.0 cm. Normal in size, contour and echogenicity. Indeterminate mass/complex cyst 1.5 x 1.8 x 2.4 cm corresponds to findings on LEFT KIDNEY: Measures: 4.5 x 4.8 x 9.0 cm. Normal in size, contour and echogenicity. No stone, solid mass lesion or hydronephrosis visualized. OTHER FINDINGS: None. IMPRESSION: Complex cyst/mass right kidney corresponding findings on recent ultrasound. No additional information can be gleaned from this study. Limitations of the current examination: The location of the finding in the right kidney and patient body habitus.
--- NOTE | 2018-08-26 19:22 | CARD ---
APPROVED REPORT Date of service: 08/26/2018 EXAM: Two-dimensional and M-mode echocardiogram with Doppler and color Doppler. Other Information Quality : GoodRhythm : Atrial Fibrillation INDICATION Atrial Fibrillation 2D DIMENSIONS IVSd1.24 (0.7-1.1cm)LVDd4.28 (3.9-5.9cm) LVOT Diameter1.82 (1.8-2.4cm)PWd1.13 (0.7-1.1cm) IVSs1.64 (0.8-1.2cm)LVDs3.15 (2.5-4.0cm) FS (%) 26.5 %PWs1.44 (0.8-1.2cm) M-Mode DIMENSIONS Left Atrium (MM)4.53 (2.5-4.0cm)IVSd1.15 (0.7-1.1cm) Aortic Root2.97 (2.2-3.7cm)LVDd4.56 (4.0-5.6cm) Aortic Cusp Exc.1.94 (1.5-2.0cm)PWd1.29 (0.7-1.1cm) IVSs1.47 cmFS (%) 27 % LVDs3.32 (2.0-3.8cm)PWs1.65 cm Aortic Valve AoV Peak Mzntnpik647.9cm/sAoV VTI20.9cmAO Peak GR.6mmHg LVOT Peak Zusmgayn69.8cm/sLVOT VTI13.33cmAO Mean GR.3mmHg CHANTEL (VMAX)0.40hd7JSQ (VTI)0.82cm2 Mitral Valve E/A ratio0.0 TDI E/Lateral E'0.0E/Medial E'0.0 Tricuspid Valve TR Peak Ziwaoasn251cp/sRAP [id number] Peak Gr.30mmHg [id number] LEFT VENTRICLE The left ventricle is normal size. There is normal left ventricular wall thickness. The left ventricular systolic function is normal. The estimated ejection fraction is 50-55% No regional wall motion abnormalities noted.. The left ventricular diastolic function cannot be assessed due to underlying atrial fibrillation. No left ventricle thrombus noted on this study. There is no ventricular septal defect visualized. There is no left ventricular aneurysm. There is no mass noted in the left ventricle. RIGHT VENTRICLE The right ventricle is normal size. There is normal right ventricular wall thickness. The right ventricular systolic function is normal. ATRIA The left atrium is moderately dilated. The right atrium size is normal. The interatrial septum is intact with no evidence for an atrial septal defect. AORTIC VALVE The aortic valve is normal in structure. No aortic regurgitation is present. There is no aortic valvular stenosis. There is no aortic valvular vegetation. MITRAL VALVE The mitral valve is normal in structure. There is no evidence of mitral valve prolapse. There is no mitral valve stenosis. There is mild mitral valve regurgitation noted. TRICUSPID VALVE The tricuspid valve is normal in structure. There is mild tricuspid valve regurgitation noted. RVSP is calculated at 40 mm Hg. There is no tricuspid valve prolapse or vegetation. There is no tricuspid valve stenosis. PULMONIC VALVE The pulmonary valve is normal in structure. There is no pulmonic valvular regurgitation. There is no pulmonic valvular stenosis. GREAT VESSELS The aortic root is normal in size. The ascending aorta is normal in size. The pulmonary artery is normal. The IVC is dilated in size and collapses <50% with inspiration. PERICARDIAL EFFUSION There is no pericardial effusion. There is no pleural effusion. <Conclusion> The estimated ejection fraction is 50-55% The left ventricular diastolic function cannot be assessed due to underlying atrial fibrillation. The left atrium is moderately dilated. There is mild mitral valve regurgitation noted. There is mild tricuspid valve regurgitation noted. RVSP is calculated at 40 mm Hg. The IVC is dilated in size and collapses <50% with inspiration.
[2018-08-26] MEDS ORDERED: PREDNISONE 7 MG PO SCH (22:00)
[2018-08-26] MEDS ORDERED: Glucagon Recombinant 1 mg Inj IM PRN (22:54)
[2018-08-26] MEDS ORDERED: Dextrose 50% SYRINGE Inj (50 ml) IV PRN (22:54)
[2018-08-27] MEDS: Potassium Chl 20 mEq in NS 1,000 ML IV SCH (04:24)
[2018-08-27 06:18] LABS: BLOOD UREA NITROGEN 13 mg/dl (7-17); CALCIUM 8.4 mg/dL (8.4-10.2); GFR NON-AFRICAN AMERICAN 55
[2018-08-27] MEDS: Insulin Regular 100 units/ml SC SCH ×4 (08:25→22:00)
[2018-08-27] MEDS: Cholecalciferol 1,000 INTLU TAB PO SCH ×2 (08:26→14:32)
[2018-08-27] MEDS: Pantoprazole 40 mg EC Tab PO SCH ×2 (08:26→14:32)
[2018-08-27] MEDS: Metoprolol Succinate 50 mg XL Tab PO SCH (08:30)
[2018-08-27] MEDS: predniSONE 5 mg/5 mL Oral Soln UD PO SCH ×2 (08:31→14:30)
[2018-08-27] MEDS ORDERED: Barium Sulfate for Susp 98% w/w 340g Bottle ONE (08:36)
[2018-08-27] MEDS ORDERED: Barium Sulfate Susp 0.1% w/v, 0.1% w/w 450 mL Bottle PO ONE (08:37)
--- NOTE | 2018-08-27 11:27 | CP.PCM.PN ---
Subjective - Date & Time of Evaluation Date of Evaluation: 08/27/18 Time of Evaluation: 11:27 - Subjective Subjective: Patient improving Cardiac w/u and culture pending. Objective - Vital Signs/Intake and Output Vital Signs (last 24 hours): Temp Pulse Resp BP Pulse Ox 98.3 F 79 18 178/95 H 96 08/27/18 08:01 08/27/18 08:30 08/27/18 08:27 08/27/18 08:30 08/27/18 08:27 Intake and Output: 08/26/18 08/27/18 23:59 11:59 Intake Total 1550 Balance 1550 - Medications Medications: Current Medications Apixaban (Eliquis) 5 mg PO BID COUNT INCLUDES THE [facility]; Protocol Last Admin: 08/27/18 11:16 Dose: Not Given Aspirin (Ecotrin) 81 mg PO HS COUNT INCLUDES THE [facility] Last Admin: 08/26/18 21:19 Dose: 81 mg Cholecalciferol (Vitamin D) 1,000 intlu PO DAILY COUNT INCLUDES THE [facility] Last Admin: 08/27/18 08:26 Dose: Not Given Dextrose (Dextrose 50% Inj) 0 ml IV STAT PRN; Protocol PRN Reason: Hypoglycemia Protocol Dextrose (Glutose 15) 0 gm PO ONCE PRN; Protocol PRN Reason: Hypoglycemia Protocol Diltiazem HCl (Cardizem) 30 mg PO TID COUNT INCLUDES THE [facility] Last Admin: 08/27/18 08:27 Dose: 30 mg Glucagon (Glucagen Diagnostic Kit) 0 mg IM STAT PRN; Protocol PRN Reason: Hypoglycemia Protocol Hydrochlorothiazide (Microzide) 12.5 mg PO DAILY COUNT INCLUDES THE [facility] Last Admin: 08/27/18 08:27 Dose: 12.5 mg Vancomycin HCl 1 gm/ Sodium (Chloride) 250 mls @ 166.667 mls/hr IVPB DAILY COUNT INCLUDES THE [facility]; Protocol Last Admin: 08/27/18 08:24 Dose: 166.667 mls/hr Insulin Human Regular (Humulin R) 0 units SC ACHS COUNT INCLUDES THE [facility]; Protocol Last Admin: 08/27/18 08:25 Dose: Not Given Metoprolol Succinate (Toprol Xl) 50 mg PO DAILY COUNT INCLUDES THE [facility] Last Admin: 08/27/18 08:30 Dose: 50 mg Pantoprazole Sodium (Protonix Ec Tab) 40 mg PO DAILY COUNT INCLUDES THE [facility] Last Admin: 08/27/18 08:26 Dose: Not Given Prednisone (Prednisone Oral Soln) 7 mg PO DAILY COUNT INCLUDES THE [facility] Last Admin: 12/07/18 08:31 Dose: Not Given Pregabalin (Lyrica) 75 mg PO BID COUNT INCLUDES THE [facility] Last Admin: 08/27/18 08:26 Dose: Not Given - Labs Labs: 08/26/18 10:27 08/27/18 04:25 PT 14.0 Seconds (9.8-13.1) H 08/25/18 19:07 INR 1.2 08/25/18 19:07 - Constitutional Appears: Chronically Ill - Head Exam Head Exam: ATRAUMATIC, NORMAL INSPECTION, NORMOCEPHALIC - Eye Exam Eye Exam: Normal appearance - ENT Exam ENT Exam: Mucous Membranes Moist - Neck Exam Neck Exam: Full ROM - Respiratory Exam Respiratory Exam: Clear to Ausculation Bilateral - Cardiovascular Exam Cardiovascular Exam: Irregular Rhythm, REGULAR RHYTHM, +S1, +S2 - GI/Abdominal Exam GI & Abdominal Exam: Normal Bowel Sounds - Neurological Exam Neurological Exam: Alert, Awake, Oriented x3 - Psychiatric Exam Psychiatric exam: Normal Affect - Skin Skin Exam: Normal Color Assessment and Plan (1) Dysphagia Status: Acute (2) Diabetes 1.5, managed as type 2 Status: Acute (3) Cardiomyopathy Status: Acute (4) Endocarditis Status: Suspected (5) Mitral valve disease Status: Acute (6) Abdominal pain Status: Acute (7) Atrial fibrillation with RVR Status: Acute (8) Morbid obesity Status: Acute (9) Esophageal stricture Status: Suspected
--- NOTE | 2018-08-27 13:30 | PQF ---
PROVIDER RESPONSE TEXT: BMI: 46.9 5 ft Morbid obesity REVIEWER QUERY TEXT: Clarification of Clinical Diagnostic Findings In agreement with the BMI: 46.9 as listed in the EMR? If in agreement please add the BMI to your next progress note OR: Disagree OR: Other explanation of clinical finding EMR: BMI: 46.9 5 ft The patient's Clinical Indicators include: -- Query created by: Rhiannon Patel on 08/27/2018 12:04 PM Electronically signed by: Leonides Momin MD 08/27/2018 1:27 PM
--- NOTE | 2018-08-27 14:00 | CP.PCM.CON ---
History of Present Illness - History of Present Illness History of Present Illness: 73 y/o lady presented with diarrhea, dysphagia, general weakness, palpitations, abdominal pain x 10 days wgt loss 14 lbs in 10 days. In ER the patient presented with new onset of a.fibrillation. An echo reveled a dilated cardiomiopathy with mitral valve regurgitation. All these condition are new and appeared acute in origin. Blood culture pending. empiric IV antibiotics in progress Review of Systems - Review of Systems All systems: reviewed and no additional remarkable complaints except - Constitutional Constitutional: As Per HPI - EENT Eyes: absent: As Per HPI, Blind Spots, Blurred Vision, Change in Vision, Decreased Night Vision, Diplopia, Discharge, Dry Eye, Exophthalmos, Floaters, Irritation, Itchy Eyes, Loss of Peripheral Vision, Pain, Photophobia, Requires Corrective Lenses, Sees Flashes, Spots in Vision, Tunnel Vision, Other Visual Disturbances, Loss of Vision, Other Ears: absent: As Per HPI, Decreased Hearing, Ear Discharge, Ear Pain, Tinnitus, Abnormal Hearing, Disequilibrium, Dizziness, Other Nose/Mouth/Throat: absent: As Per HPI, Epistaxis, Nasal Congestion, Nasal Discharge, Nasal Obstruction, Nasal Trauma, Nose Pain, Post Nasal Drip, Sinus Pain, Sinus Pressure, Bleeding Gums, Change in Voice, Dental Pain, Dry Mouth, Dysphagia, Halitosis, Hoarsness, Lip Swelling, Mouth Lesions, Mouth Pain, Odynophagia, Sore Throat, Throat Swelling, Tongue Swelling, Facial Pain, Neck Pain, Neck Mass, Other - Breasts Breasts: absent: As Per HPI, Change in Shape, Mass, Pain, Nipple Discharge, Nipple Inversion, Skin Changes, Swelling, Other - Cardiovascular Cardiovascular: absent: As Per HPI, Acrocyanosis, Chest Pain, Chest Pain at Rest, Chest Pain with Activity, Claudication, Diaphoresis, Dyspnea, Dyspnea on Exertion, Edema, Irregular Heart Rhythm, Pain Radiating to Arm/Neck/Jaw, Leg Edema, Leg Ulcers, Lightheadedness, Orthopnea, Palpitations, Paroxysmal Nocturnal Dyspnea, Pedal Edema, Radiating Pain, Rapid Heart Rate, Slow Heart Rat e, Syncope, Other - Respiratory Respiratory: absent: As Per HPI, Cough, Dyspnea, Hemoptysis, Dyspnea on Exertion, Wheezing, Snoring, Stridor, Pain on Inspiration, Chest Congestion, Excessive Mucous Production, Change in Mucous Color, Pain with Coughing, Other - Gastrointestinal Gastrointestinal: absent: As Per HPI, Abdominal Pain, Belching, Bloating, Change in Bowel Habits, Change in Stool Character, Coffee Ground Emesis, Constipation, Cramping, Diarrhea, Dyspepsia, Dysphagia, Early Satiety, Excessive Flatus, Fecal Incontinence, Heartburn, Hematemesis, Hematochezia, Loose Stools, Melena, Nausea, Odynophagia, Temesmus, Vomiting, Other - Genitourinary Genitourinary: absent: As Per HPI, Change in Urinary Stream, Difficulty Urinating, Dysuria, Flank Pain, Hematuria, Pyuria, Nocturia, Urinary Incontinence, Urinary Frequency, Urinary Hesitance, Urinary Urgency, Voiding Freq/Small Amts, Freq UTI, Hx Renal/Bladder Calculi, Hx /Renal Surgery, Bladder Distension, Other - Reproductive: Female Reproductive:Female: absent: As Per HPI, Amenorrhea, Amenorrhea/ Control, Currently Menstual, Cycle <21 Days, Cycle >35 Days, Cycle Variable, Menses 1-7 Days, Menses >/= 8 Days, Menses Variable, Cycle > 4 Weeks Between, No Menses for 6 Months, Heavy Menses, Light Menses, Normal Menses, Spotting Between Cycles, S/P Hysterectomy, Menopausal, Post Menopausal, Premenarche, Abnormal Vaginal Bleeding, Dysmenorrhea, Dyspareunia, Genital Lesions, Genital Pruritis, Pelvic Pain, Prolapse Symptoms, Sexual Dysfunction, Vaginal Discharge, Vaginal Dryness, Vaginal Odor, Vaginal Pruritis, Other - Menstruation Menstruation: absent: As Per HPI, Amenorrhea, Amenorrhea/ Control, Currently Menstual, Cycle <21 Days, Cycle >35 Days, Cycle Variable, Menses 1-7 Days, Menses >/= 8 Days, Menses Variable, Cycle > 4 Weeks Between, No Menses for 6 Months, Heavy Menses, Light Menses, Normal Menses, Spotting Between Cycles, S/P Hysterectomy, Menopausal, Post Menopausal, Premenarche, Abnormal Vaginal Bleeding, Dysmenorrhea, Other - Musculoskeletal Musculoskeletal: absent: As Per HPI, Abnormal Gait, Arthralgias, Atrophy, Back Pain, Deformity, Joint Swelling, Limited Range of Motion, Loss of Height, Muscle Cramps, Muscle Weakness, Myalgias, Neck Pain, Numbness, Radiating Pain into Limb, Stiffness, Tingling, Other - Integumentary Integumentary: absent: As Per HPI, Acne, Alopecia, Bleeding Lesions, Change in Hair, Change in Nails, Change in Pigmentation, Changing Lesions, Dry Skin, Erythema, Furuncle, Hirsutism, Lesions, New Lesions, Non-Healing Lesions, Photosensitivity, Pruritus, Rash, Skin Pain, Skin Ulcer, Sores, Striae, S welling, Unusual Bruising, Wounds, Jaundice, Other - Neurological Neurological: absent: As Per HPI, Abnormal Gait, Abnormal Hearing, Abnormal Movements, Abnormal Speech, Behavioral Changes, Burning Sensations, Confusion, Convulsions, Disequilibrium, Dizziness, Numbness, Focal Weakness, Frequent Falls, Headaches, Lack of Coordination, Loss of Vision, Memory Loss, Paresthesias, Radicular Pain, Restless Legs, Sensory Deficit, Syncope, Tingling, Tremor, Vertigo, Weakness, Other Visual Disturbances, Other - Psychiatric Psychiatric: absent: As Per HPI, Abnormal Sleep Pattern, Anhedonia, Anxiety, Auditory Hallucinations, Behavioral Changes, Change in Appetite, Change in Libido, Confusion, Depression, Difficulty Concentrating, Hallucinations, Homicidal Ideation, Hopelessness, Irritability, Memory Loss, Mood Swings, Panic Attacks, Paranoia, Suicidal Ideation, Visual Hallucinations, Tactile Hallucinations, Other - Endocrine Endocrine: absent: As Per HPI, Change in Body Appearance, Change in Libido, Cold Intolorance, Deepening of Voice, Excessive Sweating, Fatigue, Flushing, Heat Intolorance, Increase in Ring/Shoe/Hat Size, Palpitations, Polydipsia, Polyphagia, Polyuria, Other - Hematologic/Lymphatic Hematologic: absent: As Per HPI, Easy Bleeding, Easy Bruising, Lymphadenopathy, Other Past Patient History - Past Medical History & Family History Past Medical History?: Yes - Past Social History Smoking Status: Never Smoked - CARDIAC Hx Cardiac Disorders: Yes Hx Hypertension: Yes - PULMONARY Hx Respiratory Disorders: No - NEUROLOGICAL Hx Neurological Disorder: No - HEENT Hx HEENT Problems: No - RENAL Hx Chronic Kidney Disease: No - ENDOCRINE/METABOLIC Hx Endocrine Disorders: Yes Hx Diabetes Mellitus Type 2: Yes - HEMATOLOGICAL/ONCOLOGICAL Hx Blood Disorders: No Hx AIDS: No Hx Human Immunodeficiency Virus (HIV): No - INTEGUMENTARY Hx Dermatological Problems: No - MUSCULOSKELETAL/RHEUMATOLOGICAL Hx Musculoskeletal Disorders: No Hx Falls: No - GASTROINTESTINAL Hx Gastrointestinal Disorders: No - GENITOURINARY/GYNECOLOGICAL Hx Genitourinary Disorders: No - PSYCHIATRIC Hx Psychophysiologic Disorder: No Hx Substance Use: No - SURGICAL HISTORY Hx Surgeries: Yes Hx Appendectomy: Yes Other/Comment: Carpal tunnel surg, endoscopy - ANESTHESIA Hx Anesthesia: Yes Hx Anesthesia Reactions: No Hx Malignant Hyperthermia: No Meds Allergies/Adverse Reactions: Allergies Allergy/AdvReac Type Severity Reaction Status Date / Time Penicillins Allergy SHORTNESS Verified 08/25/18 17:13 OF BREATH Sulfa (Sulfonamide Allergy SHORTNESS Verified 08/25/18 17:13 Antibiotics) OF BREATH - Medications Medications: Current Medications Apixaban (Eliquis) 5 mg PO BID [facility]; Protocol Last Admin: 08/27/18 11:16 Dose: Not Given Aspirin (Ecotrin) 81 mg PO HS [facility] Last Admin: 08/26/18 21:19 Dose: 81 mg Cholecalciferol (Vitamin D) 1,000 intlu PO DAILY [facility] Last Admin: 08/27/18 08:26 Dose: Not Given Dextrose (Dextrose 50% Inj) 0 ml IV STAT PRN; Protocol PRN Reason: Hypoglycemia Protocol Dextrose (Glutose 15) 0 gm PO ONCE PRN; Protocol PRN Reason: Hypoglycemia Protocol Diltiazem HCl (Cardizem) 30 mg PO TID [facility] Last Admin: 08/27/18 08:27 Dose: 30 mg Glucagon (Glucagen Diagnostic Kit) 0 mg IM STAT PRN; Protocol PRN Reason: Hypoglycemia Protocol Hydrochlorothiazide (Microzide) 12.5 mg PO DAILY [facility] Last Admin: 08/27/18 08:27 Dose: 12.5 mg Vancomycin HCl 1 gm/ Sodium (Chloride) 250 mls @ 166.667 mls/hr IVPB DAILY [facility]; Protocol Last Admin: 08/27/18 08:24 Dose: 166.667 mls/hr Insulin Human Regular (Humulin R) 0 units SC ACHS [facility]; Protocol Last Admin: 08/27/18 11:36 Dose: Not Given Metoprolol Succinate (Toprol Xl) 50 mg PO DAILY [facility] Last Admin: 08/27/18 08:30 Dose: 50 mg Pantoprazole Sodium (Protonix Ec Tab) 40 mg PO DAILY [facility] Last Admin: 08/27/18 08:26 Dose: Not Given Prednisone (Prednisone Oral Soln) 7 mg PO DAILY [facility] Last Admin: 08/27/18 08:31 Dose: Not Given Pregabalin (Lyrica) 75 mg PO BID [facility] Last Admin: 08/27/18 08:26 Dose: Not Given Physical Exam - Constitutional Appears: Non-toxic, Chronically Ill - Head Exam Head Exam: NORMOCEPHALIC - Eye Exam Eye Exam: Scleral icterus Pupil Exam: NORMAL ACCOMODATION - ENT Exam ENT Exam: Mucous Membranes Dry - Neck Exam Neck exam: Negative for: Lymphadenopathy - Respiratory Exam Respiratory Exam: Decreased Breath Sounds, Clear to Auscultation Bilateral - Cardiovascular Exam Cardiovascular Exam: REGULAR RHYTHM, +S1, +S2 - GI/Abdominal Exam GI & Abdominal Exam: Diminished Bowel Sounds - Rectal Exam Rectal Exam: Deferred - Exam Exam: NORMAL INSPECTION - Extremities Exam Extremities exam: Negative for: pedal edema - Back Exam Back exam: absent: CVA tenderness (L), CVA tenderness (R), paraspinal tenderness - Psychiatric Exam Psychiatric exam: Depressed - Skin Skin Exam: Dry Results - Vital Signs Recent Vital Signs: Last Vital Signs Temp 97.6 F 08/27/18 12:07 Pulse 106 H 08/27/18 12:07 Resp 18 08/27/18 12:07 BP 153/84 H 08/27/18 12:07 Pulse Ox 98 08/27/18 12:07 - Labs Result Diagrams: 08/26/18 10:27 08/27/18 04:25 Labs: Laboratory Results - last 24 hr 08/26/18 08/26/18 08/26/18 14:25 15:40 22:29 Sodium Potassium Chloride Carbon Dioxide Anion Gap BUN Creatinine Est GFR ( Amer) Est GFR (Non-Af Amer) POC Glucose (mg/dL) 106 57 L Random Glucose Hemoglobin A1c 6.3 Calcium 08/26/18 08/27/18 08/27/18 22:32 00:05 04:25 Sodium 142 Potassium 3.8 Chloride 105 Carbon Dioxide 25 Anion Gap 16 BUN 13 Creatinine 1.0 Est GFR ( Amer) > 60 Est GFR (Non-Af Amer) 55 POC Glucose (mg/dL) 54 L 105 Random Glucose 63 L Hemoglobin A1c Calcium 8.4 08/27/18 08/27/18 05:05 11:16 Sodium Potassium Chloride Carbon Dioxide Anion Gap BUN Creatinine Est GFR ( Amer) Est GFR (Non-Af Amer) POC Glucose (mg/dL) 76 68 Random Glucose Hemoglobin A1c Calcium Assessment & Plan (1) Abdominal pain Status: Acute (2) Atrial fibrillation with RVR Status: Acute (3) Cardiomyopathy Status: Acute (4) Diabetes 1.5, managed as type 2 Status: Acute (5) Mitral valve disease Status: Acute (6) Morbid obesity Status: Acute (7) DM type 2 (diabetes mellitus, type 2) Status: Chronic (8) Dysphagia Status: Chronic (9) HTN (hypertension) Status: Chronic (10) Obesity, morbid, BMI 40.0-49.9 Status: Chronic (11) Endocarditis Status: Suspected (12) Esophageal stricture Status: Suspected - Assessment and Plan (Free Text) Assessment: started empiric IV antibiotics pending cultures and JS
--- NOTE | 2018-08-27 22:00 | CP.PCM.CON ---
History of Present Illness - History of Present Illness History of Present Illness: REASON FOR CONSULT : R RENAL MASS APPROXIMATELY 2 CM ALL PREVIOUS AND CURRENT EMR REVIEWED PT PRESENTED TO ER FOR UNSPECIFIC ABDO PAIN ON ABDO CT WITH CONTRAST : R INFERIOR LOBE MASS ON SONO R RENAL MASS / COMPLICATED CYST Time Seen by Provider: 08/25/18 17:35 Chief Complaint (Nursing): Abdominal Pain History Per: Patient Onset/Duration Of Symptoms: Days (10) Current Symptoms Are (Timing): Intermittent Episodes Severity: Moderate Location Of Pain/Discomfort: Epigastric Quality Of Discomfort: Unable To Describe Associated Symptoms: Nausea, Vomiting, Diarrhea. denies: Fever, Urinary Symptoms Exacerbating Factors: None Alleviating Factors: None Additional Complaint(s): Intermittent episodes of epigastric pain assoc with nausea and vomiting and diarrhea x 10 days. Denies fever or hematochezia. Denies urinary sxs. Past Medical History Vital Signs: Last Vital Signs Temp 97.7 F 08/25/18 17:15 Pulse 135 H 08/25/18 17:15 Resp 16 08/25/18 17:15 BP 187/118 H 08/25/18 17:15 Pulse Ox 96 08/25/18 17:15 - Medical History PMH: Diabetes, HTN - Surgical History Surgical History: Appendectomy, Endoscopy - Family History Family History: States: Unknown Family Hx - Immunization History Hx Influenza Vaccination: Yes - Home Medications Home Medications: Ambulatory Orders Medication Instructions Recorded Aspirin [Ecotrin] 81 mg PO HS 08/25/18 Cholecalciferol [Vitamin D 1000 IU] 1,000 unit PO DAILY 08/25/18 Ezetimibe/Simvastatin [Vytorin 1 tab PO HS 08/25/18 10-40 mg Tablet] Glipizide [Glipizide ER] 2.5 mg PO DAILY 08/25/18 Metoprolol Succinate [Toprol Xl] 50 mg PO DAILY 08/25/18 Omeprazole 40 mg PO DAILY 08/25/18 Pregabalin [Lyrica] 75 mg PO Q12 08/25/18 hydroCHLOROthiazide [Microzide] 12.5 mg PO DAILY 08/25/18 metFORMIN [glucOPHAGE] 500 mg PO BID 08/25/18 predniSONE [predniSONE Tab] 7 mg PO HS 08/25/18 Past Patient History - Past Medical History & Family History Past Medical History?: Yes - Past Social History Smoking Status: Never Smoked - CARDIAC Hx Atrial Fibrillation: Yes ([place]) Hx Hypertension: Yes - PULMONARY Hx Respiratory Disorders: No - NEUROLOGICAL Hx Neurological Disorder: No - HEENT Hx HEENT Problems: No - RENAL Hx Chronic Kidney Disease: No - ENDOCRINE/METABOLIC Hx Endocrine Disorders: Yes Hx Diabetes Mellitus Type 2: Yes - HEMATOLOGICAL/ONCOLOGICAL Hx Blood Disorders: No Hx AIDS: No Hx Human Immunodeficiency Virus (HIV): No - INTEGUMENTARY Hx Dermatological Problems: No - MUSCULOSKELETAL/RHEUMATOLOGICAL Hx Musculoskeletal Disorders: No Hx Falls: No - GASTROINTESTINAL Hx Gastrointestinal Disorders: No - GENITOURINARY/GYNECOLOGICAL Hx Genitourinary Disorders: No - PSYCHIATRIC Hx Psychophysiologic Disorder: No Hx Substance Use: No - SURGICAL HISTORY Hx Surgeries: Yes Hx Appendectomy: Yes Other/Comment: Carpal tunnel surg, endoscopy - ANESTHESIA Hx Anesthesia: Yes Hx Anesthesia Reactions: No Hx Malignant Hyperthermia: No Meds Allergies/Adverse Reactions: Allergies Allergy/AdvReac Type Severity Reaction Status Date / Time Penicillins Allergy SHORTNESS Verified 08/25/18 17:13 OF BREATH Sulfa (Sulfonamide Allergy SHORTNESS Verified 08/25/18 17:13 Antibiotics) OF BREATH - Medications Medications: Current Medications Apixaban (Eliquis) 5 mg PO BID [facility]; Protocol Last Admin: 08/27/18 16:44 Dose: 5 mg Aspirin (Ecotrin) 81 mg PO HS [facility] Last Admin: 08/26/18 21:19 Dose: 81 mg Cholecalciferol (Vitamin D) 1,000 intlu PO DAILY [facility] Last Admin: 08/27/18 14:32 Dose: 1,000 intlu Dextrose (Dextrose 50% Inj) 0 ml IV STAT PRN; Protocol PRN Reason: Hypoglycemia Protocol Dextrose (Glutose 15) 0 gm PO ONCE PRN; Protocol PRN Reason: Hypoglycemia Protocol Diltiazem HCl (Cardizem) 30 mg PO TID [facility] Last Admin: 08/27/18 16:44 Dose: 30 mg Glucagon (Glucagen Diagnostic Kit) 0 mg IM STAT PRN; Protocol PRN Reason: Hypoglycemia Protocol Hydrochlorothiazide (Microzide) 12.5 mg PO DAILY [facility] Last Admin: 08/27/18 08:27 Dose: 12.5 mg Vancomycin HCl 1 gm/ Sodium (Chloride) 250 mls @ 166.667 mls/hr IVPB Q12 [facility]; Protocol Insulin Human Regular (Humulin R) 0 units SC ACHS [facility]; Protocol Last Admin: 08/27/18 16:48 Dose: Not Given Metoprolol Succinate (Toprol Xl) 50 mg PO DAILY [facility] Last Admin: 08/27/18 08:30 Dose: 50 mg Pantoprazole Sodium (Protonix Ec Tab) 40 mg PO DAILY [facility] Last Admin: 08/27/18 14:32 Dose: 40 mg Prednisone (Prednisone Oral Soln) 7 mg PO DAILY [facility] Last Admin: 08/27/18 14:30 Dose: 7 mg Pregabalin (Lyrica) 75 mg PO BID [facility] Last Admin: 08/27/18 16:48 Dose: 75 mg Results - Vital Signs Recent Vital Signs: Last Vital Signs Temp 97.3 F L 08/27/18 16:13 Pulse 117 H 08/27/18 16:44 Resp 20 08/27/18 16:44 BP 137/84 08/27/18 16:44 Pulse Ox 97 08/27/18 16:44 - Labs Result Diagrams: 08/26/18 10:27 08/27/18 04:25 Labs: Laboratory Results - last 24 hr 08/26/18 08/26/18 08/27/18 22:29 22:32 00:05 ESR Sodium Potassium Chloride Carbon Dioxide Anion Gap BUN Creatinine Est GFR ( Amer) Est GFR (Non-Af Amer) POC Glucose (mg/dL) 57 L 54 L 105 Random Glucose Calcium C-React Prot High Sens Procalcitonin 08/27/18 08/27/18 08/27/18 04:25 05:05 11:16 ESR Sodium 142 Potassium 3.8 Chloride 105 Carbon Dioxide 25 Anion Gap 16 BUN 13 Creatinine 1.0 Est GFR ( Amer) > 60 Est GFR (Non-Af Amer) 55 POC Glucose (mg/dL) 76 68 Random Glucose 63 L Calcium 8.4 C-React Prot High Sens Procalcitonin 08/27/18 08/27/18 08/27/18 15:01 15:01 15:01 ESR 37 H Sodium Potassium Chloride Carbon Dioxide Anion Gap BUN Creatinine Est GFR ( Amer) Est GFR (Non-Af Amer) POC Glucose (mg/dL) Random Glucose Calcium C-React Prot High Sens 6.17 H Procalcitonin < 0.05 L Assessment & Plan - Assessment and Plan (Free Text) Assessment: IMP : R RENAL MASS ABDO PAIN MMP P : CONSULT AND OPINION WILL CONTINEU OBSERVATION AND F/U CLOSELY WITH YOU WILL D/W FOR POSSIBILITY OF LAPAROSCOPIC PARTIAL NEPHRECTOMY . - Date & Time Date: 08/27/18 Time: 14:00
[2018-08-28] MEDS: Insulin Regular 100 units/ml SC SCH ×4 (08:33→22:00)
[2018-08-28] MEDS: Cholecalciferol 1,000 INTLU TAB PO SCH (08:33)
[2018-08-28] MEDS: Pantoprazole 40 mg EC Tab PO SCH (08:34)
[2018-08-28] MEDS: Metoprolol Succinate 50 mg XL Tab PO SCH (08:34)
[2018-08-28] MEDS: predniSONE 5 mg/5 mL Oral Soln UD PO SCH (08:41)
[2018-08-28] MEDS ORDERED: Metoprolol Succinate 50 mg XL Tab PO STA (10:15)
--- NOTE | 2018-08-28 17:14 | CP.PCM.PN ---
Subjective - Date & Time of Evaluation Date of Evaluation: 08/28/18 Time of Evaluation: 10:00 - Subjective Subjective: No fever dysphagia better denies CP no palpitation no CP no SOB diarrhea resolved Objective - Vital Signs/Intake and Output Vital Signs (last 24 hours): Temp Pulse Resp BP Pulse Ox 98.3 F 87 17 157/75 H 95 08/28/18 16:01 08/28/18 16:26 08/28/18 16:26 08/28/18 16:26 08/28/18 16:26 - Medications Medications: Current Medications Apixaban (Eliquis) 5 mg PO BID [facility]; Protocol Last Admin: 08/28/18 16:27 Dose: 5 mg Aspirin (Ecotrin) 81 mg PO HS [facility] Last Admin: 08/27/18 22:17 Dose: 81 mg Cholecalciferol (Vitamin D) 1,000 intlu PO DAILY [facility] Last Admin: 08/28/18 08:33 Dose: 1,000 intlu Dextrose (Dextrose 50% Inj) 0 ml IV STAT PRN; Protocol PRN Reason: Hypoglycemia Protocol Dextrose (Glutose 15) 0 gm PO ONCE PRN; Protocol PRN Reason: Hypoglycemia Protocol Diltiazem HCl (Cardizem) 30 mg PO TID [facility] Last Admin: 08/28/18 16:26 Dose: 30 mg Glucagon (Glucagen Diagnostic Kit) 0 mg IM STAT PRN; Protocol PRN Reason: Hypoglycemia Protocol Hydrochlorothiazide (Microzide) 12.5 mg PO DAILY [facility] Last Admin: 08/28/18 08:34 Dose: 12.5 mg Vancomycin HCl 1 gm/ Sodium (Chloride) 250 mls @ 166.667 mls/hr IVPB Q12 [facility]; Protocol Last Admin: 08/28/18 08:41 Dose: 166.667 mls/hr Insulin Human Regular (Humulin R) 0 units SC ACHS [facility]; Protocol Last Admin: 08/28/18 16:28 Dose: 2 units Metoprolol Succinate (Toprol Xl) 100 mg PO DAILY [facility] Pantoprazole Sodium (Protonix Ec Tab) 40 mg PO DAILY [facility] Last Admin: 08/28/18 08:34 Dose: 40 mg Prednisone (Prednisone Oral Soln) 7 mg PO DAILY [facility] Last Admin: 08/28/18 08:41 Dose: 7 mg Pregabalin (Lyrica) 75 mg PO BID [facility] Last Admin: 08/28/18 16:31 Dose: 75 mg - Labs Labs: 08/26/18 10:27 08/27/18 04:25 PT 14.0 Seconds (9.8-13.1) H 08/25/18 19:07 INR 1.2 08/25/18 19:07 - Constitutional Appears: Non-toxic, No Acute Distress - Head Exam Head Exam: NORMAL INSPECTION, NORMOCEPHALIC - Eye Exam Eye Exam: EOMI, Normal appearance Pupil Exam: NORMAL ACCOMODATION - ENT Exam ENT Exam: Mucous Membranes Moist, Normal External Ear Exam - Neck Exam Neck Exam: Full ROM. absent: Meningismus - Respiratory Exam Respiratory Exam: NORMAL BREATHING PATTERN. absent: Respiratory Distress - Cardiovascular Exam Cardiovascular Exam: REGULAR RHYTHM, +S1, +S2 - GI/Abdominal Exam GI & Abdominal Exam: Soft. absent: Tenderness - Extremities Exam Extremities Exam: Full ROM. absent: Calf Tenderness - Back Exam Back Exam: Full ROM. absent: CVA tenderness (L), CVA tenderness (R) - Neurological Exam Neurological Exam: Alert, Awake, CN II-XII Intact, Oriented x3 Neuro motor strength exam: Left Upper Extremity: 5, Right Upper Extremity: 5, Left Lower Extremity: 5, Right Lower Extremity: 5 - Psychiatric Exam Psychiatric exam: Normal Affect, Normal Mood - Skin Skin Exam: Dry, Normal Color, Warm Assessment and Plan (1) Atrial fibrillation with RVR Status: Acute (2) Abdominal pain Status: Acute (3) Dysphagia Status: Chronic (4) DM type 2 (diabetes mellitus, type 2) Status: Chronic (5) HTN (hypertension) Status: Chronic (6) Obesity, morbid, BMI 40.0-49.9 Status: Chronic - Assessment and Plan (Free Text) Plan: (1) Atrial fibrillation with RVR Status: Acute cont Eliquis Increase Toprol to 100 mg daily cont Cardizem 2. Epigastric Pain , ACS ruled out Cardio consulted- DR Lieberman Nuclear stress test done (3) Gastroenteritis , resolved Status: Acute diarrhea resolved tolerating PO diet (4) Dysphagia Status: Chronic Pt states she has had Intermittent Dysphagia for years now since after an ERCP procedure ffup with GI, outpt Swallowing eval (5) DM type 2 (diabetes mellitus, type 2) Status: Chronic accucheck (6) HTN (hypertension) Status: Chronic (7) Obesity, morbid, BMI 40.0-49.9 Status: Chronic 8. Endocarditis ruled out - Blood c/s negative x 48 hrs - Procalcitonin neg - ID consulted 9. Complex Renal Cyst - further outpt ff up with Dr Murphy
--- NOTE | 2018-08-28 19:24 | CP.PCM.PN ---
Subjective - Date & Time of Evaluation Date of Evaluation: 08/28/18 Time of Evaluation: 16:00 - Subjective Subjective: SEEN ON RENAL F/U FEELS MUCH BETTER CLINICALLY Objective - Vital Signs/Intake and Output Vital Signs (last 24 hours): Temp Pulse Resp BP Pulse Ox 98.3 F 87 17 157/75 H 95 08/28/18 16:01 08/28/18 16:26 08/28/18 16:26 08/28/18 16:26 08/28/18 16:26 Intake and Output: 08/28/18 08/29/18 18:59 06:59 Intake Total 1330 Balance 1330 - Medications Medications: Current Medications Apixaban (Eliquis) 5 mg PO BID [facility]; Protocol Last Admin: 08/28/18 16:27 Dose: 5 mg Aspirin (Ecotrin) 81 mg PO HS [facility] Last Admin: 08/27/18 22:17 Dose: 81 mg Cholecalciferol (Vitamin D) 1,000 intlu PO DAILY [facility] Last Admin: 08/28/18 08:33 Dose: 1,000 intlu Dextrose (Dextrose 50% Inj) 0 ml IV STAT PRN; Protocol PRN Reason: Hypoglycemia Protocol Dextrose (Glutose 15) 0 gm PO ONCE PRN; Protocol PRN Reason: Hypoglycemia Protocol Diltiazem HCl (Cardizem) 30 mg PO TID [facility] Last Admin: 08/28/18 16:26 Dose: 30 mg Glucagon (Glucagen Diagnostic Kit) 0 mg IM STAT PRN; Protocol PRN Reason: Hypoglycemia Protocol Hydrochlorothiazide (Microzide) 12.5 mg PO DAILY [facility] Last Admin: 08/28/18 08:34 Dose: 12.5 mg Vancomycin HCl 1 gm/ Sodium (Chloride) 250 mls @ 166.667 mls/hr IVPB Q12 [facility]; Protocol Last Admin: 08/28/18 08:41 Dose: 166.667 mls/hr Insulin Human Regular (Humulin R) 0 units SC ACHS [facility]; Protocol Last Admin: 08/28/18 16:28 Dose: 2 units Metoprolol Succinate (Toprol Xl) 100 mg PO DAILY [facility] Pantoprazole Sodium (Protonix Ec Tab) 40 mg PO DAILY [facility] Last Admin: 08/28/18 08:34 Dose: 40 mg Prednisone (Prednisone Oral Soln) 7 mg PO DAILY [facility] Last Admin: 08/28/18 08:41 Dose: 7 mg Pregabalin (Lyrica) 75 mg PO BID [facility] Last Admin: 08/28/18 16:31 Dose: 75 mg - Labs Labs: 08/26/18 10:27 08/27/18 04:25 PT 14.0 Seconds (9.8-13.1) H 08/25/18 19:07 INR 1.2 08/25/18 19:07 Assessment and Plan - Assessment and Plan (Free Text) Plan: R complicated renal cyst / tumor .. needs consult c/o present care
[2018-08-29 06:38] LABS: BASO % 0.4 % (0.0-2.0); EOS # 0.4 K/uL (0.0-0.7); EOS % 3.6 % (0.0-4.0); HEMOGLOBIN 9.8 g/dL (12.0-16.0); LYMPH # 2.1 K/uL (1.0-4.3); MEAN CELL VOLUME 72.4 fl (81.0-99.0); MEAN CORPUSCULAR HEMOGLOBIN 22.7 pg (27.0-31.0); MEAN CORPUSCULAR HGB CONC 31.4 g/dL (33.0-37.0); MEAN PLATELET VOLUME 8.6 fl (7.2-11.7); MONO # 0.7 K/uL (0.0-0.8); NEUT # 6.8 K/uL (1.8-7.0); NRBC % 0.1 % (0.0-0.0); RBC 4.33 Mil/uL (3.80-5.20); RED CELL DISTRIBUTION WIDTH 19.7 % (11.5-14.5)
[2018-08-29 06:46] LABS: ALB/GLOB RATIO 0.9 (1.0-2.1); ALBUMIN 3.3 g/dL (3.5-5.0); ALT/SGPT 19 U/L (9-52); AST/SGOT 24 U/L (14-36); BLOOD UREA NITROGEN 16 mg/dl (7-17); CALCIUM 8.7 mg/dL (8.4-10.2); GFR NON-AFRICAN AMERICAN 55
[2018-08-29] MEDS: Insulin Regular 100 units/ml SC SCH ×4 (07:34→21:47)
[2018-08-29] MEDS: Metoprolol Succinate 100 mg XL Tab PO SCH (08:28)
[2018-08-29] MEDS: Cholecalciferol 1,000 INTLU TAB PO SCH (08:29)
[2018-08-29] MEDS: Pantoprazole 40 mg EC Tab PO SCH (08:29)
--- NOTE | 2018-08-29 12:30 | CP.PCM.CON ---
History of Present Illness - History of Present Illness History of Present Illness: denies fevr chills or abdominal pain awake alert nad all cultures neg thus far Review of Systems - Review of Systems All systems: reviewed and no additional remarkable complaints except Past Patient History - Past Medical History & Family History Past Medical History?: Yes - Past Social History Smoking Status: Never Smoked - CARDIAC Hx Cardiac Disorders: Yes Hx Hypertension: Yes - PULMONARY Hx Respiratory Disorders: No - NEUROLOGICAL Hx Neurological Disorder: No - HEENT Hx HEENT Problems: No - RENAL Hx Chronic Kidney Disease: No - ENDOCRINE/METABOLIC Hx Endocrine Disorders: Yes Hx Diabetes Mellitus Type 2: Yes - HEMATOLOGICAL/ONCOLOGICAL Hx Blood Disorders: No Hx AIDS: No Hx Human Immunodeficiency Virus (HIV): No - INTEGUMENTARY Hx Dermatological Problems: No - MUSCULOSKELETAL/RHEUMATOLOGICAL Hx Musculoskeletal Disorders: No Hx Falls: No - GASTROINTESTINAL Hx Gastrointestinal Disorders: No - GENITOURINARY/GYNECOLOGICAL Hx Genitourinary Disorders: No - PSYCHIATRIC Hx Psychophysiologic Disorder: No Hx Substance Use: No - SURGICAL HISTORY Hx Surgeries: Yes Hx Appendectomy: Yes Other/Comment: Carpal tunnel surg, endoscopy - ANESTHESIA Hx Anesthesia: Yes Hx Anesthesia Reactions: No Hx Malignant Hyperthermia: No Meds Home Medications: Home Medication List Medication Instructions Recorded Confirmed Type Apixaban [Eliquis] 5 mg PO BID #60 tab 08/29/18 Rx Metoprolol Succinate XL [Toprol XL] 100 mg PO DAILY #30 tab 08/29/18 Rx diltiaZEM [Cardizem] 30 mg PO TID #90 tab 08/29/18 Rx Allergies/Adverse Reactions: Allergies Allergy/AdvReac Type Severity Reaction Status Date / Time Penicillins Allergy SHORTNESS Verified 08/25/18 17:13 OF BREATH Sulfa (Sulfonamide Allergy SHORTNESS Verified 08/25/18 17:13 Antibiotics) OF BREATH - Medications Medications: Current Medications Apixaban (Eliquis) 5 mg PO BID [facility]; Protocol Last Admin: 08/29/18 08:29 Dose: 5 mg Aspirin (Ecotrin) 81 mg PO HS [facility] Last Admin: 08/28/18 21:09 Dose: 81 mg Cholecalciferol (Vitamin D) 1,000 intlu PO DAILY [facility] Last Admin: 08/29/18 08:29 Dose: 1,000 intlu Dextrose (Dextrose 50% Inj) 0 ml IV STAT PRN; Protocol PRN Reason: Hypoglycemia Protocol Dextrose (Glutose 15) 0 gm PO ONCE PRN; Protocol PRN Reason: Hypoglycemia Protocol Diltiazem HCl (Cardizem) 30 mg PO TID [facility] Last Admin: 08/29/18 12:19 Dose: 30 mg Glucagon (Glucagen Diagnostic Kit) 0 mg IM STAT PRN; Protocol PRN Reason: Hypoglycemia Protocol Hydrochlorothiazide (Microzide) 12.5 mg PO DAILY [facility] Last Admin: 08/29/18 08:28 Dose: 12.5 mg Vancomycin HCl 1 gm/ Sodium (Chloride) 250 mls @ 166.667 mls/hr IVPB Q12 [facility]; Protocol Last Admin: 08/29/18 08:36 Dose: 166.667 mls/hr Insulin Human Regular (Humulin R) 0 units SC ACHS [facility]; Protocol Last Admin: 08/29/18 12:19 Dose: Not Given Metoprolol Succinate (Toprol Xl) 100 mg PO DAILY [facility] Last Admin: 08/29/18 08:28 Dose: 100 mg Pantoprazole Sodium (Protonix Ec Tab) 40 mg PO DAILY [facility] Last Admin: 08/29/18 08:29 Dose: 40 mg Prednisone (Prednisone Tab) 7.5 mg PO DAILY [facility] Last Admin: 08/29/18 08:45 Dose: 7.5 mg Physical Exam - Constitutional Appears: Non-toxic, Chronically Ill - Head Exam Head Exam: NORMOCEPHALIC - Eye Exam Eye Exam: absent: Scleral icterus - ENT Exam ENT Exam: Mucous Membranes Dry - Neck Exam Neck exam: Negative for: Lymphadenopathy - Respiratory Exam Respiratory Exam: Decreased Breath Sounds - Cardiovascular Exam Cardiovascular Exam: REGULAR RHYTHM - GI/Abdominal Exam GI & Abdominal Exam: Diminished Bowel Sounds, Soft - Rectal Exam Rectal Exam: Deferred - Exam Exam: NORMAL INSPECTION - Extremities Exam Extremities exam: Negative for: pedal edema - Back Exam Back exam: absent: CVA tenderness (L), CVA tenderness (R) Results - Vital Signs Recent Vital Signs: Last Vital Signs Temp 98.1 F 08/29/18 12:17 Pulse 85 08/29/18 12:19 Resp 18 08/29/18 12:19 BP 166/99 H 08/29/18 12:19 Pulse Ox 97 08/29/18 12:19 - Labs Result Diagrams: 08/29/18 05:30 08/29/18 05:30 Labs: Laboratory Results - last 24 hr 08/28/18 08/28/18 08/29/18 16:10 21:47 05:30 WBC 10.0 RBC 4.33 Hgb 9.8 L Hct 31.4 L MCV 72.4 L MCH 22.7 L MCHC 31.4 L RDW 19.7 H Plt Count 277 MPV 8.6 Neut % (Auto) 68.0 Lymph % (Auto) 21.0 [place] % (Auto) 7.0 Eos % (Auto) 3.6 Baso % (Auto) 0.4 Neut # (Auto) 6.8 Lymph # (Auto) 2.1 [place] # (Auto) 0.7 Eos # (Auto) 0.4 Baso # (Auto) 0.0 Sodium Potassium Chloride Carbon Dioxide Anion Gap BUN Creatinine Est GFR ( Amer) Est GFR (Non-Af Amer) POC Glucose (mg/dL) 162 H 146 H Random Glucose Calcium Total Bilirubin AST ALT Alkaline Phosphatase Total Protein Albumin Globulin Albumin/Globulin Ratio Vancomycin Trough 08/29/18 08/29/18 08/29/18 05:30 05:30 06:36 WBC RBC Hgb Hct MCV MCH MCHC RDW Plt Count MPV Neut % (Auto) Lymph % (Auto) [place] % (Auto) Eos % (Auto) Baso % (Auto) Neut # (Auto) Lymph # (Auto) [place] # (Auto) Eos # (Auto) Baso # (Auto) Sodium 141 Potassium 3.9 Chloride 104 Carbon Dioxide 28 Anion Gap 13 BUN 16 Creatinine 1.0 Est GFR ( Amer) > 60 Est GFR (Non-Af Amer) 55 POC Glucose (mg/dL) 97 Random Glucose 94 Calcium 8.7 Total Bilirubin 0.7 AST 24 ALT 19 Alkaline Phosphatase 74 Total Protein 6.9 Albumin 3.3 L Globulin 3.6 Albumin/Globulin Ratio 0.9 L Vancomycin Trough 19.1 H 08/29/18 10:58 WBC RBC Hgb Hct MCV MCH MCHC RDW Plt Count MPV Neut % (Auto) Lymph % (Auto) [place] % (Auto) Eos % (Auto) Baso % (Auto) Neut # (Auto) Lymph # (Auto) [place] # (Auto) Eos # (Auto) Baso # (Auto) Sodium Potassium Chloride Carbon Dioxide Anion Gap BUN Creatinine Est GFR ( Amer) Est GFR (Non-Af Amer) POC Glucose (mg/dL) 129 H Random Glucose Calcium Total Bilirubin AST ALT Alkaline Phosphatase Total Protein Albumin Globulin Albumin/Globulin Ratio Vancomycin Trough Assessment & Plan (1) Abdominal pain Status: Acute (2) Atrial fibrillation with RVR Status: Acute (3) Cardiomyopathy Status: Acute (4) Diabetes 1.5, managed as type 2 Status: Acute (5) Mitral valve disease Status: Acute (6) Morbid obesity Status: Acute (7) DM type 2 (diabetes mellitus, type 2) Status: Chronic (8) Dysphagia Status: Chronic (9) HTN (hypertension) Status: Chronic (10) Obesity, morbid, BMI 40.0-49.9 Status: Chronic (11) Endocarditis Status: Suspected Comment: all cultures negative. await final echio report/cardio follow up (12) Esophageal stricture Status: Suspected - Assessment and Plan (Free Text) Assessment: IV Kristao d/c'd
--- NOTE | 2018-08-29 14:32 | CP.PCM.PN ---
Subjective - Date & Time of Evaluation Date of Evaluation: 08/29/18 Time of Evaluation: 13:45 - Subjective Subjective: Pt denies CP no SON no palpitation no fever diarrhea resolved Discussed plan for Cardiac cath as rec by Dr Lieberman- pt and daughter agreed to the procedure Objective - Vital Signs/Intake and Output Vital Signs (last 24 hours): Temp Pulse Resp BP Pulse Ox 98.1 F 85 18 166/99 H 97 08/29/18 12:17 08/29/18 12:19 08/29/18 12:19 08/29/18 12:19 08/29/18 12:19 - Medications Medications: Current Medications Apixaban (Eliquis) 5 mg PO BID [facility]; Protocol Last Admin: 08/29/18 08:29 Dose: 5 mg Aspirin (Ecotrin) 81 mg PO HS [facility] Last Admin: 08/28/18 21:09 Dose: 81 mg Cholecalciferol (Vitamin D) 1,000 intlu PO DAILY [facility] Last Admin: 08/29/18 08:29 Dose: 1,000 intlu Dextrose (Dextrose 50% Inj) 0 ml IV STAT PRN; Protocol PRN Reason: Hypoglycemia Protocol Dextrose (Glutose 15) 0 gm PO ONCE PRN; Protocol PRN Reason: Hypoglycemia Protocol Diltiazem HCl (Cardizem) 30 mg PO TID [facility] Last Admin: 08/29/18 12:19 Dose: 30 mg Glucagon (Glucagen Diagnostic Kit) 0 mg IM STAT PRN; Protocol PRN Reason: Hypoglycemia Protocol Hydrochlorothiazide (Microzide) 12.5 mg PO DAILY [facility] Last Admin: 08/29/18 08:28 Dose: 12.5 mg Insulin Human Regular (Humulin R) 0 units SC [facility]; Protocol Last Admin: 08/29/18 12:19 Dose: Not Given Metoprolol Succinate (Toprol Xl) 100 mg PO DAILY [facility] Last Admin: 08/29/18 08:28 Dose: 100 mg Pantoprazole Sodium (Protonix Ec Tab) 40 mg PO DAILY [facility] Last Admin: 08/29/18 08:29 Dose: 40 mg Prednisone (Prednisone Tab) 7.5 mg PO DAILY [facility] Last Admin: 08/29/18 08:45 Dose: 7.5 mg - Labs Labs: 08/29/18 05:30 08/29/18 05:30 PT 14.0 Seconds (9.8-13.1) H 08/25/18 19:07 INR 1.2 08/25/18 19:07 - Constitutional Appears: Non-toxic, No Acute Distress - Head Exam Head Exam: NORMAL INSPECTION, NORMOCEPHALIC - Eye Exam Eye Exam: EOMI, Normal appearance Pupil Exam: NORMAL ACCOMODATION - ENT Exam ENT Exam: Mucous Membranes Moist, Normal External Ear Exam - Neck Exam Neck Exam: Full ROM. absent: Meningismus - Respiratory Exam Respiratory Exam: NORMAL BREATHING PATTERN. absent: Respiratory Distress - Cardiovascular Exam Cardiovascular Exam: REGULAR RHYTHM, +S1, +S2 - GI/Abdominal Exam GI & Abdominal Exam: Soft. absent: Tenderness - Extremities Exam Extremities Exam: Full ROM. absent: Calf Tenderness - Back Exam Back Exam: Full ROM. absent: CVA tenderness (L), CVA tenderness (R) - Neurological Exam Neurological Exam: Alert, Awake, CN II-XII Intact, Oriented x3 Neuro motor strength exam: Left Upper Extremity: 5, Right Upper Extremity: 5, Left Lower Extremity: 5, Right Lower Extremity: 5 - Psychiatric Exam Psychiatric exam: Normal Affect, Normal Mood - Skin Skin Exam: Dry, Normal Color, Warm Assessment and Plan (1) Atrial fibrillation with RVR Status: Acute (2) Abdominal pain Status: Acute (3) Dysphagia Status: Chronic (4) DM type 2 (diabetes mellitus, type 2) Status: Chronic (5) HTN (hypertension) Status: Chronic (6) Obesity, morbid, BMI 40.0-49.9 Status: Chronic - Assessment and Plan (Free Text) Assessment: (1) Atrial fibrillation with RVR Status: Acute On Eliquis- will hold as pt for Cardiac cath in am Increased Toprol to 100 mg daily cont Cardizem 2. CAD Cardio consulted- DR Lieberman Nuclear stress test done- abn - plan for Cardiac cath in am pt on ASA, BB (3) Gastroenteritis , resolved Status: Acute diarrhea resolved tolerating PO diet (4) Dysphagia Status: Chronic Pt states she has had Intermittent Dysphagia for years now since after an ERCP procedure ffup with GI, outpt Swallowing eval (5) DM type 2 (diabetes mellitus, type 2) Status: Chronic accucheck (6) HTN (hypertension) Status: Chronic (7) Obesity, morbid, BMI 40.0-49.9 Status: Chronic 8. Endocarditis ruled out - Blood c/s negative x 48 hrs - Procalcitonin neg - ID consulted- Canco d/c by Dr Nava 9. Complex Renal Cyst - further outpt ff up with Dr Murphy - Urology consult
[2018-08-30] MEDS ORDERED: Metoprolol 1 mg/ml Inj IVP STA (06:09)
[2018-08-30] MEDS: Metoprolol Succinate 100 mg XL Tab PO SCH (06:25)
[2018-08-30] MEDS: Insulin Regular 100 units/ml SC SCH ×3 (06:36→21:57)
--- NOTE | 2018-08-30 08:39 | CP.PCM.PN ---
Subjective - Date & Time of Evaluation Date of Evaluation: 08/30/18 Time of Evaluation: 08:39 - Subjective Subjective: s/p abnormal stress test plan for LHCx today Objective - Vital Signs/Intake and Output Vital Signs (last 24 hours): Temp Pulse Resp BP Pulse Ox 97.6 F 109 H 20 157/88 H 96 08/30/18 08:17 08/30/18 08:17 08/30/18 08:17 08/30/18 08:17 08/30/18 08:17 - Medications Medications: Current Medications Apixaban (Eliquis) 5 mg PO BID [facility]; Protocol Last Admin: 08/29/18 08:29 Dose: 5 mg Aspirin (Ecotrin) 81 mg PO HS [facility] Last Admin: 08/29/18 21:48 Dose: 81 mg Cholecalciferol (Vitamin D) 1,000 intlu PO DAILY [facility] Last Admin: 08/29/18 08:29 Dose: 1,000 intlu Dextrose (Dextrose 50% Inj) 0 ml IV STAT PRN; Protocol PRN Reason: Hypoglycemia Protocol Dextrose (Glutose 15) 0 gm PO ONCE PRN; Protocol PRN Reason: Hypoglycemia Protocol Diltiazem HCl (Cardizem) 30 mg PO TID [facility] Last Admin: 08/29/18 16:39 Dose: 30 mg Glucagon (Glucagen Diagnostic Kit) 0 mg IM STAT PRN; Protocol PRN Reason: Hypoglycemia Protocol Hydrochlorothiazide (Microzide) 12.5 mg PO DAILY [facility] Last Admin: 08/29/18 08:28 Dose: 12.5 mg Insulin Human Regular (Humulin R) 0 units SC ACHS [facility]; Protocol Last Admin: 08/30/18 06:36 Dose: Not Given Metoprolol Succinate (Toprol Xl) 100 mg PO DAILY [facility] Last Admin: 08/30/18 06:25 Dose: 100 mg Pantoprazole Sodium (Protonix Ec Tab) 40 mg PO DAILY [facility] Last Admin: 08/29/18 08:29 Dose: 40 mg Prednisone (Prednisone Tab) 7.5 mg PO DAILY [facility] Last Admin: 08/29/18 08:45 Dose: 7.5 mg - Labs Labs: 08/29/18 05:30 08/29/18 05:30 PT 14.0 Seconds (9.8-13.1) H 08/25/18 19:07 INR 1.2 08/25/18 19:07 - Constitutional Appears: Well - Head Exam Head Exam: ATRAUMATIC, NORMAL INSPECTION, NORMOCEPHALIC - Eye Exam Eye Exam: EOMI, Normal appearance, PERRL Pupil Exam: NORMAL ACCOMODATION, PERRL - ENT Exam ENT Exam: Mucous Membranes Moist, Normal Exam - Neck Exam Neck Exam: Full ROM, Normal Inspection. absent: Lymphadenopathy - Respiratory Exam Respiratory Exam: Clear to Ausculation Bilateral, NORMAL BREATHING PATTERN - Cardiovascular Exam Cardiovascular Exam: REGULAR RHYTHM, +S1, +S2. absent: Murmur - GI/Abdominal Exam GI & Abdominal Exam: Soft, Normal Bowel Sounds. absent: Tenderness - Rectal Exam Rectal Exam: NORMAL INSPECTION - Exam Exam: Circumcision, NORMAL INSPECTION External exam: NORMAL EXTERNAL EXAM Speculum exam: NORMAL SPECULUM EXAM Bimanual exam: NORMAL BIMANUAL EXAM - Extremities Exam Extremities Exam: Full ROM, Normal Capillary Refill, Normal Inspection. absent: Joint Swelling, Pedal Edema - Back Exam Back Exam: NORMAL INSPECTION - Neurological Exam Neurological Exam: Alert, Awake, CN II-XII Intact, Normal Gait, Oriented x3 - Psychiatric Exam Psychiatric exam: Normal Affect, Normal Mood - Skin Skin Exam: Dry, Intact, Normal Color, Warm Assessment and Plan (1) Atrial fibrillation with RVR Status: Acute (2) Abdominal pain Status: Acute (3) Cardiomyopathy Status: Acute (4) Mitral valve disease Status: Acute (5) Morbid obesity Status: Acute
--- NOTE | 2018-08-30 09:20 | CP.PCM.PN ---
<Juancho Fraga - Last Filed: 08/30/18 15:20> Subjective - Date & Time of Evaluation Date of Evaluation: 08/30/18 Time of Evaluation: 08:30 - Subjective Subjective: Pt seen and examined at bedside. No acute events overnight. denies CP/SOB/N/V, or palpitations. Plan for today: Cardiac cath with Dr. Lieberman. s/p abnormal stress test Objective - Vital Signs/Intake and Output Vital Signs (last 24 hours): Temp Pulse Resp BP Pulse Ox 97.6 F 109 H 20 157/88 H 96 08/30/18 08:17 08/30/18 08:17 08/30/18 08:17 08/30/18 08:17 08/30/18 08:17 - Medications Medications: Current Medications Apixaban (Eliquis) 5 mg PO BID [facility]; Protocol Last Admin: 08/29/18 08:29 Dose: 5 mg Aspirin (Ecotrin) 81 mg PO HS [facility] Last Admin: 08/29/18 21:48 Dose: 81 mg Cholecalciferol (Vitamin D) 1,000 intlu PO DAILY [facility] Last Admin: 08/29/18 08:29 Dose: 1,000 intlu Dextrose (Dextrose 50% Inj) 0 ml IV STAT PRN; Protocol PRN Reason: Hypoglycemia Protocol Dextrose (Glutose 15) 0 gm PO ONCE PRN; Protocol PRN Reason: Hypoglycemia Protocol Diltiazem HCl (Cardizem) 30 mg PO TID [facility] Last Admin: 08/29/18 16:39 Dose: 30 mg Glucagon (Glucagen Diagnostic Kit) 0 mg IM STAT PRN; Protocol PRN Reason: Hypoglycemia Protocol Hydrochlorothiazide (Microzide) 12.5 mg PO DAILY [facility] Last Admin: 08/29/18 08:28 Dose: 12.5 mg Insulin Human Regular (Humulin R) 0 units SC [facility]; Protocol Last Admin: 08/30/18 06:36 Dose: Not Given Metoprolol Succinate (Toprol Xl) 100 mg PO DAILY [facility] Last Admin: 08/30/18 06:25 Dose: 100 mg Pantoprazole Sodium (Protonix Ec Tab) 40 mg PO DAILY [facility] Last Admin: 08/29/18 08:29 Dose: 40 mg Prednisone (Prednisone Tab) 7.5 mg PO DAILY [facility] Last Admin: 08/29/18 08:45 Dose: 7.5 mg - Labs Labs: 12/09/18 05:30 08/29/18 05:30 PT 14.0 Seconds (9.8-13.1) H 08/25/18 19:07 INR 1.2 08/25/18 19:07 - Constitutional Appears: Well, Non-toxic - Eye Exam Eye Exam: EOMI - ENT Exam ENT Exam: Mucous Membranes Moist - Respiratory Exam Respiratory Exam: Clear to Ausculation Bilateral, NORMAL BREATHING PATTERN. absent: Wheezes - Cardiovascular Exam Cardiovascular Exam: Irregular Rhythm - GI/Abdominal Exam GI & Abdominal Exam: Soft, Normal Bowel Sounds. absent: Tenderness - Neurological Exam Neurological Exam: Alert, Awake, CN II-XII Intact, Oriented x3 Additional comments: Ambulates with cane. - Psychiatric Exam Psychiatric exam: Normal Affect, Normal Mood Assessment and Plan - Assessment and Plan (Free Text) Assessment: 73 y/o lady presented with diarrhea, dysphagia, general weakness, palpitations, abdominal pain, new onset afib. Plan: Atrial fibrillation with RVR Status: Acute Eliquis- held; pt went for Cardiac cath s/p abnormal stress test Toprol to 100 mg daily cont Cardizem CAD Cardio: DR Lieberman Nuclear stress test done- abn - Cardiac cath today pt on ASA, BB Gastroenteritis, resolved Status: Acute diarrhea resolved tolerating PO diet Stool culture: negative; C. diff ag & toxin negative Dysphagia Status: Chronic Pt states she has had Intermittent Dysphagia for years now since after an ERCP procedure f/u with GI, outpt Swallowing eval DM type 2 Status: Chronic accucheck ISS HTN Status: Chronic HCTZ Obesity, morbid, BMI 40.0-49.9 Status: Chronic Endocarditis ruled out - Blood c/s (x2) negative x 3 Days - Procalcitonin neg - ID consulted- Canco d/c by Dr. Nava Complex Renal Cyst - further outpt f/u with Dr Murphy - Urology consult Plan d/w Dr. Ward Fraga MD PGY2 <Courtney Hopper - Last Filed: 08/30/18 15:34> Objective - Vital Signs/Intake and Output Vital Signs (last 24 hours): Temp Pulse Resp BP Pulse Ox 97.6 F 83 20 157/88 H 96 08/30/18 08:17 08/30/18 09:18 08/30/18 09:18 12/10/18 09:18 08/30/18 09:18 - Medications Medications: Current Medications Apixaban (Eliquis) 5 mg PO BID [facility]; Protocol Last Admin: 08/29/18 08:29 Dose: 5 mg Aspirin (Ecotrin) 81 mg PO HS [facility] Last Admin: 08/29/18 21:48 Dose: 81 mg Cholecalciferol (Vitamin D) 1,000 intlu PO DAILY [facility] Last Admin: 08/30/18 09:22 Dose: 1,000 intlu Dextrose (Dextrose 50% Inj) 0 ml IV STAT PRN; Protocol PRN Reason: Hypoglycemia Protocol Dextrose (Glutose 15) 0 gm PO ONCE PRN; Protocol PRN Reason: Hypoglycemia Protocol Diltiazem HCl (Cardizem) 30 mg PO TID [facility] Last Admin: 08/30/18 13:00 Dose: Not Given Glucagon (Glucagen Diagnostic Kit) 0 mg IM STAT PRN; Protocol PRN Reason: Hypoglycemia Protocol Hydrochlorothiazide (Microzide) 12.5 mg PO DAILY [facility] Last Admin: 08/29/18 08:28 Dose: 12.5 mg Insulin Human Regular (Humulin R) 0 units SC [facility]; Protocol Last Admin: 08/30/18 12:00 Dose: Not Given Metoprolol Succinate (Toprol Xl) 100 mg PO DAILY [facility] Last Admin: 08/30/18 06:25 Dose: 100 mg Pantoprazole Sodium (Protonix Ec Tab) 40 mg PO DAILY [facility] Last Admin: 08/30/18 09:22 Dose: 40 mg Prednisone (Prednisone Tab) 7.5 mg PO DAILY [facility] Last Admin: 08/30/18 09:22 Dose: 7.5 mg - Labs Labs: 08/29/18 05:30 08/29/18 05:30 PT 14.0 Seconds (9.8-13.1) H 08/25/18 19:07 INR 1.2 08/25/18 19:07 Assessment and Plan (1) Atrial fibrillation with RVR Status: Acute (2) Abdominal pain Status: Acute (3) Dysphagia Status: Chronic (4) DM type 2 (diabetes mellitus, type 2) Status: Chronic (5) HTN (hypertension) Status: Chronic (6) Obesity, morbid, BMI 40.0-49.9 Status: Chronic Attending/Attestation - Attestation I have personally seen and examined this patient.: Yes I have fully participated in the care of the patient.: Yes I have reviewed all pertinent clinical information, including history, physical exam and plan: Yes Notes (Text): Discussed case with Dr Pereyra ( Urology) - pt to ff up with him as outpt for the Complex cyst
[2018-08-30] MEDS: Pantoprazole 40 mg EC Tab PO SCH (09:22)
[2018-08-30] MEDS: Cholecalciferol 1,000 INTLU TAB PO SCH (09:22)
--- NOTE | 2018-08-30 18:53 | CP.PCM.PN ---
Subjective - Date & Time of Evaluation Date of Evaluation: 08/30/18 Time of Evaluation: 16:00 - Subjective Subjective: SEEN ON RENAL F/U FEELS MUCH BETTER Objective - Vital Signs/Intake and Output Vital Signs (last 24 hours): Temp Pulse Resp BP Pulse Ox 97.6 F 101 H 18 143/82 97 08/30/18 18:08 08/30/18 18:08 08/30/18 18:08 08/30/18 18:08 08/30/18 18:08 - Medications Medications: Current Medications Apixaban (Eliquis) 5 mg PO BID [facility]; Protocol Last Admin: 08/29/18 08:29 Dose: 5 mg Aspirin (Ecotrin) 81 mg PO HS [facility] Last Admin: 08/29/18 21:48 Dose: 81 mg Cholecalciferol (Vitamin D) 1,000 intlu PO DAILY [facility] Last Admin: 08/30/18 09:22 Dose: 1,000 intlu Dextrose (Dextrose 50% Inj) 0 ml IV STAT PRN; Protocol PRN Reason: Hypoglycemia Protocol Dextrose (Glutose 15) 0 gm PO ONCE PRN; Protocol PRN Reason: Hypoglycemia Protocol Diltiazem HCl (Cardizem) 30 mg PO TID [facility] Last Admin: 08/30/18 13:00 Dose: Not Given Glucagon (Glucagen Diagnostic Kit) 0 mg IM STAT PRN; Protocol PRN Reason: Hypoglycemia Protocol Hydrochlorothiazide (Microzide) 12.5 mg PO DAILY [facility] Last Admin: 08/29/18 08:28 Dose: 12.5 mg Insulin Human Regular (Humulin R) 0 units SC ACHS [facility]; Protocol Last Admin: 08/30/18 12:00 Dose: Not Given Metoprolol Succinate (Toprol Xl) 100 mg PO DAILY [facility] Last Admin: 08/30/18 06:25 Dose: 100 mg Pantoprazole Sodium (Protonix Ec Tab) 40 mg PO DAILY [facility] Last Admin: 08/30/18 09:22 Dose: 40 mg Prednisone (Prednisone Tab) 7.5 mg PO DAILY [facility] Last Admin: 08/30/18 09:22 Dose: 7.5 mg - Labs Labs: 08/29/18 05:30 08/29/18 05:30 PT 14.0 Seconds (9.8-13.1) H 08/25/18 19:07 INR 1.2 08/25/18 19:07 Assessment and Plan - Assessment and Plan (Free Text) Assessment: R RENAL COMPLES CYST / MASS MMP P: WAS CALLED WILL F/U
--- NOTE | 2018-08-30 20:45 | CON ---
DATE: 08/30/2018 COMPREHENSIVE UROLOGY CONSULTATION TIME OF CONSULTATION: Roughly 09:55 a.m. BRIEF HISTORY: The patient is a 73-year-old white female with history of diabetes mellitus, hypertension, and hyperlipidemia who comes to [facility] ([facility]] ER on 08/25/2018 with a complaint of abdominal pain and diarrhea. An abdominal and pelvic CT done on 08/25/2018 showed a nonspecific rounded mass in the lower pole of the right kidney measuring 18 mm in diameter. This should be further evaluated with ultrasound examination. There were no other renal mass identified. No calculus or hydronephrosis. Adrenals were unremarkable, no mass. Bladder was suboptimally distended. Mild mural thickening and questionable perivesical stranding raised question of acute cystitis. The patient had a renal ultrasound done on 08/26/2018, which showed a complex cystic mass in the right kidney. The patient was also noted to have atrial fibrillation in the ER and is currently going for cardiac catheterization today 08/30/2018. Her diarrhea and abdominal pain have resolved today, 08/30/2018. She voids with a usual normal urinary stream. No dysuria, gross hematuria, or renal colic. PAST SURGICAL HISTORY: Includes appendectomy and gallbladder surgery. No other surgeries. No prior history of any kidney disease or kidney stones. PHYSICAL EXAMINATION: VITAL SIGNS: Today 08/30/2018, showed a temperature of 98.2, pulse rate 86, respirations 20, blood pressure 144/91, and O2 sat on room air was 98%. ABDOMEN: Today her abdomen is soft, globus. Not distended or tender. No CVA tenderness, no suprapubic tenderness. HEENT: Grossly within normal limits. NECK: Supple. Thyroid not palpable. EXTREMITIES: She has full range of motion of both upper and lower extremities. LABORATORY DATA: Laboratory evaluation on 08/26/2018 shows a urinalysis which shows the color was yellow, clarity was clear, pH was 6, specific gravity 1.023; protein, glucose, blood, nitrites, bilirubin were all negative; ketones were trace. Urobilinogen was 0.2 to 1. Leukocyte esterase was negative, 2 rbc's, 1 wbc per high-powered field. Her CBC on 08/29/2018 showed a WBC count of 10, hemoglobin of 9.8, and hematocrit of 31.4 with a platelet count of 277,000 indicating a moderate anemia. Chem profile showed a sodium of 141, potassium 3.9, chloride 104, CO2 of 28, BUN and creatinine 16 and 1 respectively with a GFR of 55 indicating chronic kidney disease stage 3. Glucose is 97 and random glucose is 94, calcium 8.7. The remainder of her comprehensive metabolic profile was essentially negative. DIAGNOSTIC IMPRESSION: Right lower pole complex cystic renal mass. PLAN: To discuss this case with Radiology to see if this mass was able to be visualized as enhancing or nonenhancing with this CT with IV contrast. If the radiologist cannot determine enhancement on this study, the study will have to be repeated as a tumor protocol. This was discussed with her attending Dr. Hopper. The patient can be seen in office followup in one week. Case and CT/US were reviewed with Dr. Foster(radiology) most likely a complex cyst but repeat CT renal neoplasm protocol without and with IV contrast should be done in a few weeks to check for enhancement. Hiram Pereyra MD [id number]
[2018-08-31] MEDS: Insulin Regular 100 units/ml SC SCH ×2 (06:52→13:22)
[2018-08-31] MEDS: Pantoprazole 40 mg EC Tab PO SCH (09:58)
[2018-08-31] MEDS: Metoprolol Succinate 100 mg XL Tab PO SCH (09:59)
[2018-08-31] MEDS: Cholecalciferol 1,000 INTLU TAB PO SCH (09:59)
--- NOTE | 2018-08-31 10:33 | CP.PCM.PN ---
Subjective - Date & Time of Evaluation Date of Evaluation: 08/31/18 Time of Evaluation: 09:00 - Subjective Subjective: cultures all neg events noted Objective - Vital Signs/Intake and Output Vital Signs (last 24 hours): Temp Pulse Resp BP Pulse Ox 98.0 F 99 H 18 128/80 98 08/31/18 09:28 08/31/18 09:59 1218 09:55 12 09:59 08/31/18 09:55 - Medications Medications: Current Medications Apixaban (Eliquis) 5 mg PO BID [facility]; Protocol Last Admin: 08/29/18 08:29 Dose: 5 mg Aspirin (Ecotrin) 81 mg PO HS [facility] Last Admin: 08/30/18 21:55 Dose: 81 mg Cholecalciferol (Vitamin D) 1,000 intlu PO DAILY [facility] Last Admin: 08/31/18 09:59 Dose: 1,000 intlu Dextrose (Dextrose 50% Inj) 0 ml IV STAT PRN; Protocol PRN Reason: Hypoglycemia Protocol Dextrose (Glutose 15) 0 gm PO ONCE PRN; Protocol PRN Reason: Hypoglycemia Protocol Diltiazem HCl (Cardizem) 30 mg PO TID [facility] Last Admin: 08/31/18 09:55 Dose: 30 mg Glucagon (Glucagen Diagnostic Kit) 0 mg IM STAT PRN; Protocol PRN Reason: Hypoglycemia Protocol Hydrochlorothiazide (Microzide) 12.5 mg PO DAILY [facility] Last Admin: 08/29/18 08:28 Dose: 12.5 mg Insulin Human Regular (Humulin R) 0 units SC ACHS [facility]; Protocol Last Admin: 08/31/18 06:52 Dose: Not Given Metoprolol Succinate (Toprol Xl) 100 mg PO DAILY [facility] Last Admin: 08/31/18 09:59 Dose: 100 mg Pantoprazole Sodium (Protonix Ec Tab) 40 mg PO DAILY [facility] Last Admin: 08/31/18 09:58 Dose: 40 mg Prednisone (Prednisone Tab) 7.5 mg PO DAILY [facility] Last Admin: 08/31/18 09:57 Dose: 7.5 mg - Labs Labs: 08/29/18 05:30 08/31/18 08:55 PT 14.0 Seconds (9.8-13.1) H 08/25/18 19:07 INR 1.2 08/25/18 19:07 Assessment and Plan (1) Abdominal pain Status: Acute (2) Atrial fibrillation with RVR Status: Acute (3) Cardiomyopathy Status: Acute (4) Diabetes 1.5, managed as type 2 Status: Acute (5) Mitral valve disease Status: Acute (6) Morbid obesity Status: Acute (7) DM type 2 (diabetes mellitus, type 2) Status: Chronic (8) Dysphagia Status: Chronic (9) HTN (hypertension) Status: Chronic (10) Obesity, morbid, BMI 40.0-49.9 Status: Chronic (11) Endocarditis Status: Suspected (12) Esophageal stricture Status: Suspected
--- NOTE | 2018-08-31 11:45 | CP.PCM.PN ---
Subjective - Date & Time of Evaluation Date of Evaluation: 08/31/18 Time of Evaluation: 09:00 Objective - Vital Signs/Intake and Output Vital Signs (last 24 hours): Temp Pulse Resp BP Pulse Ox 98.0 F 99 H 18 128/80 98 08/31/18 09:28 1218 09:59 08/31/18 09:55 08/31/18 09:59 08/31/18 09:55 - Medications Medications: Current Medications Apixaban (Eliquis) 5 mg PO BID [facility]; Protocol Last Admin: 08/29/18 08:29 Dose: 5 mg Aspirin (Ecotrin) 81 mg PO HS [facility] Last Admin: 08/30/18 21:55 Dose: 81 mg Cholecalciferol (Vitamin D) 1,000 intlu PO DAILY [facility] Last Admin: 08/31/18 09:59 Dose: 1,000 intlu Dextrose (Dextrose 50% Inj) 0 ml IV STAT PRN; Protocol PRN Reason: Hypoglycemia Protocol Dextrose (Glutose 15) 0 gm PO ONCE PRN; Protocol PRN Reason: Hypoglycemia Protocol Diltiazem HCl (Cardizem) 30 mg PO TID [facility] Last Admin: 08/31/18 09:55 Dose: 30 mg Glucagon (Glucagen Diagnostic Kit) 0 mg IM STAT PRN; Protocol PRN Reason: Hypoglycemia Protocol Hydrochlorothiazide (Microzide) 12.5 mg PO DAILY [facility] Last Admin: 08/29/18 08:28 Dose: 12.5 mg Insulin Human Regular (Humulin R) 0 units SC ACHS [facility]; Protocol Last Admin: 08/31/18 06:52 Dose: Not Given Metoprolol Succinate (Toprol Xl) 100 mg PO DAILY [facility] Last Admin: 08/31/18 09:59 Dose: 100 mg Pantoprazole Sodium (Protonix Ec Tab) 40 mg PO DAILY [facility] Last Admin: 08/31/18 09:58 Dose: 40 mg Prednisone (Prednisone Tab) 7.5 mg PO DAILY [facility] Last Admin: 08/31/18 09:57 Dose: 7.5 mg - Labs Labs: 08/29/18 05:30 08/31/18 08:55 PT 14.0 Seconds (9.8-13.1) H 08/25/18 19:07 INR 1.2 08/25/18 19:07
[2018-08-31 13:23] VITALS: BP 146/76; PULSE 88; RESP 20; O2SAT 95
[2018-08-31 13:27] VITALS: TEMP 97.9
--- NOTE | 2018-08-31 15:48 | CP.PCM.PN ---
Subjective - Date & Time of Evaluation Date of Evaluation: 08/31/18 Time of Evaluation: 15:46 - Subjective Subjective: s/p lhcx showing NOCAD with diastolic CHF and elevated filling pressures Objective - Vital Signs/Intake and Output Vital Signs (last 24 hours): Temp Pulse Resp BP Pulse Ox 97.9 F 88 20 146/76 95 08/31/18 13:26 08/31/18 13:26 08/31/18 13:26 08/31/18 13:26 08/31/18 13:26 - Medications Medications: Current Medications Apixaban (Eliquis) 5 mg PO BID [facility]; Protocol Last Admin: 08/29/18 08:29 Dose: 5 mg Aspirin (Ecotrin) 81 mg PO HS [facility] Last Admin: 08/30/18 21:55 Dose: 81 mg Cholecalciferol (Vitamin D) 1,000 intlu PO DAILY [facility] Last Admin: 08/31/18 09:59 Dose: 1,000 intlu Dextrose (Dextrose 50% Inj) 0 ml IV STAT PRN; Protocol PRN Reason: Hypoglycemia Protocol Dextrose (Glutose 15) 0 gm PO ONCE PRN; Protocol PRN Reason: Hypoglycemia Protocol Diltiazem HCl (Cardizem) 30 mg PO TID [facility] Last Admin: 08/31/18 13:21 Dose: 30 mg Glucagon (Glucagen Diagnostic Kit) 0 mg IM STAT PRN; Protocol PRN Reason: Hypoglycemia Protocol Hydrochlorothiazide (Microzide) 12.5 mg PO DAILY [facility] Last Admin: 08/29/18 08:28 Dose: 12.5 mg Insulin Human Regular (Humulin R) 0 units SC [facility]; Protocol Last Admin: 08/31/18 13:22 Dose: Not Given Metoprolol Succinate (Toprol Xl) 100 mg PO DAILY [facility] Last Admin: 08/31/18 09:59 Dose: 100 mg Pantoprazole Sodium (Protonix Ec Tab) 40 mg PO DAILY [facility] Last Admin: 08/31/18 09:58 Dose: 40 mg Prednisone (Prednisone Tab) 7.5 mg PO DAILY [facility] Last Admin: 08/31/18 09:57 Dose: 7.5 mg - Labs Labs: 08/29/18 05:30 08/31/18 08:55 PT 14.0 Seconds (9.8-13.1) H 08/25/18 19:07 INR 1.2 08/25/18 19:07 - Constitutional Appears: Well - Head Exam Head Exam: ATRAUMATIC, NORMAL INSPECTION, NORMOCEPHALIC - Eye Exam Eye Exam: EOMI, Normal appearance, PERRL Pupil Exam: NORMAL ACCOMODATION, PERRL - ENT Exam ENT Exam: Mucous Membranes Moist, Normal Exam - Neck Exam Neck Exam: Full ROM, Normal Inspection. absent: Lymphadenopathy - Respiratory Exam Respiratory Exam: Clear to Ausculation Bilateral, NORMAL BREATHING PATTERN - Cardiovascular Exam Cardiovascular Exam: REGULAR RHYTHM, +S1, +S2. absent: Murmur - GI/Abdominal Exam GI & Abdominal Exam: Soft, Normal Bowel Sounds. absent: Tenderness - Extremities Exam Extremities Exam: Full ROM, Normal Capillary Refill, Normal Inspection. absent: Joint Swelling, Pedal Edema - Back Exam Back Exam: NORMAL INSPECTION - Neurological Exam Neurological Exam: Alert, Awake, CN II-XII Intact, Normal Gait, Oriented x3 - Psychiatric Exam Psychiatric exam: Normal Affect, Normal Mood - Skin Skin Exam: Dry, Intact, Normal Color, Warm Assessment and Plan (1) Atrial fibrillation with RVR Assessment & Plan: cont toprol xl 100mg po daily cont eliquis chg cardizem to 240mg po daily Status: Acute (2) Abdominal pain Status: Acute (3) Cardiomyopathy Assessment & Plan: diastolic CHF with elevated filling pressures low dose diuretic cont bb cont oac Status: Acute (4) Mitral valve disease Status: Acute (5) Morbid obesity Status: Acute
[2018-08-31 16:25] LABS: SQUAMOUS EPITHIAL 5 /hpf (0-5); URINE BILIRUBIN NEGATIVE (NEGATIVE); URINE BLOOD NEGATIVE (NEGATIVE); URINE CLARITY SLIGHTY-CLOUDY (Clear); URINE COLOR YELLOW (YELLOW); URINE GLUCOSE (UA) 50 mg/dL (NEGATIVE); URINE LEUKOCYTE ESTERASE NEG Leu/uL (Negative); URINE PROTEIN NEGATIVE (NEGATIVE); URINE UROBILINOGEN 0.2-1.0 mg/dL (0.2-1.0)
--- NOTE | 2018-08-31 17:26 | CP.PCM.DIS ---
Provider - Provider Date of Admission: 08/26/18 14:17 Attending physician: Leonides Momin MD Consults: 08/25/18 18:59 Physician Consult Stat Comment: Consulting Provider: Julián Lieberman Consulting Physician: Julián Lieberman Reason for Consult: New onset afib 08/26/18 12:00 Nursing Referral for Wound Care Routine Comment: Physician Instructions: Reason For Exam: routine 08/26/18 13:27 Gastroenterology Consult Routine Comment: Consulting Provider: Aroldo Choi Consulting Physician: Aroldo Choi Reason for Consult: dysphagia 08/26/18 13:28 Infectious Disease Consult Routine Comment: Consulting Provider: Wilbur Nava Consulting Physician: Wilbur Nava Reason for Consult: possible endocarditis 08/26/18 21:50 Nephrology Consult Routine Comment: Consulting Provider: Rogelio Willis Consulting Physician: Rogelio Willis Reason for Consult: complex renal cyst 08/29/18 14:35 Urology Consult Routine Comment: Consulting Provider: Hiram Pereyra Consulting Physician: Hiram Pereyra Reason for Consult: Complex Renal Cyst Time Spent in preparation of Discharge (in minutes): 30 Hospital Course - Lab Results Lab Results: Micro Results 08/26/18 15:15 Blood-Venous Blood Culture - Final NO GROWTH AFTER 5 DAYS 08/26/18 15:15 Blood-Venous Gram Stain - Final TEST NOT PERFORMED 08/26/18 15:00 Blood-Venous Blood Culture - Final NO GROWTH AFTER 5 DAYS 08/26/18 15:00 Blood-Venous Gram Stain - Final TEST NOT PERFORMED 08/26/18 11:50 Stool Stool Culture - Final NO SALMONELLA, SHIGELLA OR CAMPYLOBACTER ISOLATED. Most Recent Lab Values WBC 10.0 K/uL (4.8-10.8) 08/29/18 05:30 RBC 4.33 Mil/uL (3.80-5.20) 08/29/18 05:30 Hgb 9.8 g/dL (12.0-16.0) L 08/29/18 05:30 Hct 31.4 % (34.0-47.0) L 08/29/18 05:30 MCV 72.4 fl (81.0-99.0) L 08/29/18 05:30 MCH 22.7 pg (27.0-31.0) L 08/29/18 05:30 MCHC 31.4 g/dL (33.0-37.0) L 08/29/18 05:30 RDW 19.7 % (11.5-14.5) H 08/29/18 05:30 Plt Count 277 K/uL (130-400) 08/29/18 05:30 MPV 8.6 fl (7.2-11.7) 08/29/18 05:30 Neut % (Auto) 68.0 % (50.0-75.0) 08/29/18 05:30 Lymph % (Auto) 21.0 % (20.0-40.0) 08/29/18 05:30 Gove % (Auto) 7.0 % (0.0-10.0) 08/29/18 05:30 Eos % (Auto) 3.6 % (0.0-4.0) 08/29/18 05:30 Baso % (Auto) 0.4 % (0.0-2.0) 08/29/18 05:30 Neut # (Auto) 6.8 K/uL (1.8-7.0) 08/29/18 05:30 Lymph # (Auto) 2.1 K/uL (1.0-4.3) 08/29/18 05:30 Gove # (Auto) 0.7 K/uL (0.0-0.8) 08/29/18 05:30 Eos # (Auto) 0.4 K/uL (0.0-0.7) 08/29/18 05:30 Baso # (Auto) 0.0 K/uL (0.0-0.2) 08/29/18 05:30 ESR 37 mm/hr (0-30) H 08/27/18 15:01 PT 14.0 Seconds (9.8-13.1) H 08/25/18 19:07 INR 1.2 08/25/18 19:07 Sodium 140 mmol/l (132-148) 08/31/18 08:55 Potassium 3.8 MMOL/L (3.6-5.0) 08/31/18 08:55 Chloride 104 mmol/L (98-107) 08/31/18 08:55 Carbon Dioxide 29 mmol/L (22-30) 08/31/18 08:55 Anion Gap 11 (10-20) 08/31/18 08:55 BUN 20 mg/dl (7-17) H 08/31/18 08:55 Creatinine 1.1 mg/dl (0.7-1.2) 12 08:55 Est GFR ( Amer) 59 08/31/18 08:55 Est GFR (Non-Af Amer) 49 08/31/18 08:55 POC Glucose (mg/dL) 132 mg/dL (65-110) H 08/31/18 11:31 Random Glucose 113 mg/dL (65-105) H 08/31/18 08:55 Hemoglobin A1c 6.3 % (4.2-6.5) 08/26/18 14:25 Calcium 9.0 mg/dL (8.4-10.2) 08/31/18 08:55 Total Bilirubin 0.7 mg/dl (0.2-1.3) 08/29/18 05:30 AST 24 U/L (14-36) 08/29/18 05:30 ALT 19 U/L (9-52) 08/29/18 05:30 Alkaline Phosphatase 74 U/L (38-126) 08/29/18 05:30 Troponin I 0.0210 ng/mL (0.00-0.120) 08/26/18 00:24 C-React Prot High Sens 6.17 mg/L (1.00-3.00) H 08/27/18 15:01 Total Protein 6.9 G/DL (6.3-8.2) 08/29/18 05:30 Albumin 3.3 g/dL (3.5-5.0) L 08/29/18 05:30 Globulin 3.6 gm/dL (2.2-3.9) 08/29/18 05:30 Albumin/Globulin Ratio 0.9 (1.0-2.1) L 08/29/18 05:30 Lipase 102 U/L (23-300) 08/25/18 18:02 Procalcitonin < 0.05 NG/ML (0.19-0.49) L 08/27/18 15:01 Thyroxine (T4) 9.93 ug/dl (5.5-11.0) 12/06/18 00:24 Total T3 1.01 nmol/L (1.49-2.60) L 08/26/18 00:24 TSH 3rd Generation 6.77 mIU/ML (0.46-4.68) H 08/25/18 18:00 Urine Color Yellow (YELLOW) 08/31/18 16:17 Urine Clarity Slighty-cloudy (Clear) 08/31/18 16:17 Urine pH 6.0 (5.0-8.0) 08/31/18 16:17 Ur Specific [place] 1.025 (1.003-1.030) 08/31/18 16:17 Urine Protein Negative mg/dL (NEGATIVE) 08/31/18 16:17 Urine Glucose (UA) 50 mg/dL (NEGATIVE) 08/31/18 16:17 Urine Ketones Negative mg/dL (NEGATIVE) 08/31/18 16:17 Urine Blood Negative (NEGATIVE) 08/31/18 16:17 Urine Nitrate Negative (NEGATIVE) 08/31/18 16:17 Urine Bilirubin Negative (NEGATIVE) 08/31/18 16:17 Urine Urobilinogen 0.2-1.0 mg/dL (0.2-1.0) 08/31/18 16:17 Ur Leukocyte Esterase Neg Lc/uL (Negative) 08/31/18 16:17 Urine RBC (Auto) 2 /hpf (0-3) 08/31/18 16:17 Urine Microscopic WBC 3 /hpf (0-5) 08/31/18 16:17 Ur Squamous Epith Cells 5 /hpf (0-5) 08/31/18 16:17 Hyaline Casts 0-2 /hpf (0-2) 08/26/18 11:50 Vancomycin Trough 19.1 ug/mL (5.0-10.0) H 08/29/18 05:30 C. difficile Ag & Toxin Negative (NEGATIVE) 08/26/18 11:50 - Hospital Course Hospital Course: 73 y/o lady presented with diarrhea, dysphagia, general weakness, palpitations, abdominal pain, new onset afib Acute Atrial fibrillation with RVR On Eliquis, ASA 81 mg, Toprol to 100 mg, Cardizem 30 mg TID; Cardiology: Dr. Lieberman: Cardiac cath 08/30/2018: s/p abnormal stress test. Cardiac cath 08/30/2018: Diastolic CHF, nonobstructive CAD, Moderate pulmonary HTN Endocarditis ruled out: Blood cultures (x2) negative x 4 days; Procalcitonin negative Gastroenteritis, resolved and tolerated PO; Stool culture: negative; C. diff ag & toxin negative Dysphagia: since ERCP procedure; to f/u with GI, outpt Swallowing eval Complex Renal Cyst: Dr. Willis: f/u outpatient Urology: Dr. Pereyra: Re-eval of CT. January/ outpatient Plan dw Dr. Vianca Fraga MD PGY2 Discharge Exam - Head Exam Head Exam: ATRAUMATIC, NORMAL INSPECTION, NORMOCEPHALIC - Eye Exam Eye Exam: EOMI - ENT Exam ENT Exam: Mucous Membranes Moist - Respiratory Exam Respiratory Exam: Clear to PA & Lateral, NORMAL BREATHING PATTERN. absent: Wheezes - Cardiovascular Exam Cardiovascular Exam: Irregular Rhythm, +S1, +S2 - GI/Abdominal Exam GI & Abdominal Exam: Normal Bowel Sounds, Soft. absent: Tenderness - Extremities Exam Additional comments: Site of cardiac cath incision at R femoral: CDI; bandage dry. No ecchymosis or hematoma observed Metatarsals: sensation, range of motion, intact. Strength 5/5. Capillary refill <2 seconds. - Neurological Exam Neurological exam: Alert, CN II-XII Intact - Psychiatric Exam Psychiatric exam: Normal Affect, Normal Mood Discharge Plan - Discharge Medications Prescriptions: Apixaban [Eliquis] 5 mg PO BID #60 tab diltiaZEM [Cardizem] 30 mg PO TID #90 tab Metoprolol Succinate XL [Toprol XL] 100 mg PO DAILY #30 tab - Follow Up Plan Condition: FAIR Disposition: HOME/ ROUTINE Instructions: Atrial Fibrillation (DC), Cardiac Catheterization (DC) Additional Instructions: follow up with after the 09/06 and in 1 week from today. Follow up with Dr. Lozano - re the kidney in 1 week. follow up with dr choi for testing. Referrals: Hiram Pereyra MD [Staff Provider] - Julián Lieberman MD [Staff Provider] - Aroldo Choi MD [Staff Provider] - Leonides Momin MD [Family Provider] -
== END 2018-08-31 15:50 | disposition home or self-care (01) | DRG 287 ==
LOC: H.ER 16:57 → H.ERHOLD 21:24 → H.TEL 08-26 03:49 → OBSVTOIN 08-26 14:17
PROVIDERS: ADMIT Internal Medicine; ATTEND Internal Medicine
PROC: 4A023N8 Measurement of Cardiac Sampling and Pressure, Bilateral, Percutaneous Approach (ICD-10-PCS; principal; 2018-08-30)
PROC: B215YZZ Fluoroscopy of Left Heart using Other Contrast (ICD-10-PCS; 2018-08-30)
PROC: B211YZZ Fluoroscopy of Multiple Coronary Arteries using Other Contrast (ICD-10-PCS; 2018-08-30)
DX: I48.91 Unspecified atrial fibrillation (principal); Z68.42 Body mass index [BMI] 45.0-49.9, adult; I13.0 Hypertensive heart and chronic kidney disease with heart failure and stage 1 through stage 4 chronic kidney disease, or unspecified chronic kidney disease; I50.30 Unspecified diastolic (congestive) heart failure; I34.0 Nonrheumatic mitral (valve) insufficiency; E66.01 Morbid (severe) obesity due to excess calories; I42.0 Dilated cardiomyopathy; T38.0X5A Adverse effect of glucocorticoids and synthetic analogues, initial encounter; Z88.0 Allergy status to penicillin; Z88.2 Allergy status to sulfonamides; E09.22 Drug or chemical induced diabetes mellitus with diabetic chronic kidney disease; N18.3 Chronic kidney disease, stage 3 (moderate); K52.9 Noninfective gastroenteritis and colitis, unspecified; N28.1 Cyst of kidney, acquired; R13.10 Dysphagia, unspecified; F32.9 Major depressive disorder, single episode, unspecified; E78.5 Hyperlipidemia, unspecified; I25.10 Atherosclerotic heart disease of native coronary artery without angina pectoris; Z79.84 Long term (current) use of oral hypoglycemic drugs; Z79.82 Long term (current) use of aspirin; I27.20 Pulmonary hypertension, unspecified